=== PATIENT | male | born 1950 | race Caucasian/White ===

== ENCOUNTER 2021-12-09 17:03 | Outpatient (REF) | payer MEDICARE, SELFPAY ==
--- NOTE | ~2021-12-09 | XR_ITS ---
EXAMINATION: XR CHEST CLINICAL INFORMATION: Preop evaluation COMPARISON: None TECHNIQUE: 2 views of the chest were obtained. FINDINGS: The lungs are hyperinflated but clear of acute process. Heart size and pulmonary vascularity is normal. No gross bony or the body seen. XR/XR chest 2V IMPRESSION: Unremarkable chest examination.
[2021-12-09 17:15] LABS: MANUAL DIFF FLAG NO
[2021-12-09 17:46] LABS: Basophils Percent Auto 0.5 % (0-2); Eosinophils Absolute Auto 0.1 X10*3/uL (0.0-0.4); Eosinophils Percent Auto 1.5 % (0-4); Hematocrit 40.9 % (42.0-52.0); Hemoglobin 13.7 g/dl (14.0-18.0); Imm Gran Abs Auto 0.01 X10*3/uL (0.00-0.03); Imm Gran Pct Auto 0.2 % (0.0-0.4); Lymphocytes Absolute Auto 1.5 X10*3/uL (1.2-4.9); Lymphocytes Percent Auto 25.3 % (20-40); Mean Corpuscular HGB Conc 33.5 g/dl (31.0-36.0); Mean Corpuscular Hemoglobin 30.3 pg (27.0-33.0); Mean Corpuscular Volume 90.5 fL (80.0-98.0); Mean Platelet Volume 9.2 fL (9.4-12.4); Monocytes Absolute Auto 0.6 X10*3/uL (0.1-1.2); Monocytes Percent Auto 10.7 % (2-11); Neutrophils Absolute Auto 3.7 x10*3/uL (2.0-8.3); Neutrophils Percent Auto 61.8 % (45-73); Platelet Count 263 X10*3/uL (160-400); Red Blood Count 4.52 X10*6/uL (4.60-5.80); White Blood Count 5.9 X10*3/uL (4.8-10.8)
== END 2021-12-09 17:04 | disposition home or self-care (01) ==
LOC: HO.XRAY 17:03
PROVIDERS: PCP Internal Medicine Medical Oncology; Visit Provider Internal Medicine Medical Oncology
DX: Z01.818 Encounter for other preprocedural examination (principal)
CPT/HCPCS: 36415; 71046; 85025

== ENCOUNTER 2025-06-26 13:16 | Outpatient (REF) | payer MEDICARE, SELFPAY ==
--- OUTSIDE RECORDS SUMMARY | 2024-08-04 06:00 | XMS_ITS ---
Author Organization Demar Person III, MD Address [address] [place] [address] Care Team Providers Care Teachers' Assistant Name Role Phone Dr. Demar Person III Primary Care Provider Allergies Allergen (clinical drug ingredient) Drug/Non Drug Allergy documented on EMR Reaction Allergy Type Onset Date Status No Known Drug Allergy Unknown Drug Allergy Active REASON FOR VISIT Ozempiic weight loss plan rreview, Benign prostaticc hypertrophy, Obesity, . Diabettes, Oral leukoplakia Medications Medication SIG (Take, Route, Frequency, Duration) Notes Start Date End Date Status Niacin 500 MG 1 tablet with food Orally Twice a day Active CoQ-10 Active Glucosamine 500 MG 2 capsule with a meal Orally once a day Active Ozempic (1 MG/DOSE) 4 MG/3ML as directed Subcutaneous weekly for 28 days 08/04/2024 07/06/2025 Active Lisinopril 10 MG 1 tablet Orally Once a day 2024 Active metFORMIN HCl 500 MG TAKE 2 TABLET BY MOUTH TWICE A DAY WITH MEALS Active Vitamin D 1000 UNIT 1 tablet Orally Once a day Active Losartan Potassium 50 MG TAKE 2 TABLETS BY MOUTH EVERY DAY Active Simvastatin 10 MG TAKE 1 TABLET BY MOUTH EVERY DAY Active glipiZIDE ER 10 MG TAKE 1 TABLET BY MOUTH EVERY DAY WITH BREAKFAST Active Ozempic (0.25 or 0.5 MG/DOSE) 2 MG/3ML 0.5 mg Subcutaneous weekly this increases dose from .25 to .5 mg 2024 Active Ozempic (0.25 or 0.5 MG/DOSE) 2 MG/3ML 0.25 mg as directed Subcutaneous weekly 05/10/2024 Active Ozempic (0.25 or 0.5 MG/DOSE) 2 MG/3ML as directed Subcutaneous 05/10/2024 Active Social History Tobacco Use: Social History Observation Description Date Details (start date - stop date) Former Smoker NA - NA Sex Assigned At : Social History Observation Description Sex Assigned At Male Tobacco Use/Smoking Question Answer Notes Patient is a former smoker How long has it been since you last smoked? > 10 years Additional Findings: Tobacco Non-User Ex-cigaret te smoker Vital Signs Temperature 97.0 degrees Fahrenheit 08/04/20 24 Blood pressure systolic 140 mm Hg 08/04/20 24 Blood pressure diastolic 80 mm Hg 024 Heart Rate 76 /min 08/04/2024 Height 71 in 08/04/2024 Weight 229 lbs 08/04/2024 BMI 31.94 kg/m2 08/04/2024 Encounters Encounter Location Date Provider Diagnosis Demar Person III, MD [address] [place] [address] [place] [address] 08/04/2024 Demar Person Obesity (BMI 30.0-34 .9) E66.9 ; Type 2 diabetes mellitus without complication, unspecified whether longterm insulin use E11.9 ; Benign prostatic hyperplasia, unspecified whether lower urinary tract symptoms present N40.0 ; Mixed hyperlipidemia E78.2 ; 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 I have increased the dose of Ozempic. We have reviewed his weight loss strategy. 08/04/2024 Type 2 diabetes mellitus without complication, unspecified whether long distance operator insulin use (ICD-10 - E11.9) He reports his glucose levels are under 1:30. His fasting glucose was 128. I have ordered a hemoglobin A1c to be done for his next visit with a microalbumin. 08/04/2024 Benign prostatic hyperplasia, unspecified whether lower urinary tract symptoms present (ICD-10 - N40.0) He rises from sleep once or twice a night to urinate depending upon fluid intake. We discussed lifestyle modification as a way to reduce nocturia. 08/04/2024 Mixed hyperlipidemia (ICD-10 - E78.2) His lipids are stable and in their target range. No change in his regimen was necessary today. 08/04/2024 Leukoplakia of tongu e (ICD-10 - K13.21) He sees a dentist regularly. His oral examination was benign today.No leukoplakia was visualized. 08/04/2024 Former smoker (ICD-1 0 - Z87.891) He has a plan to prevent relapse in times of stress and illness. Plan Of Treatment Medication Medication Name Sig Start Date Stop Date Notes Niacin 500 MG 1 tablet with food Orally Twice a day CoQ-10 Glucosamine 500 MG 2 capsule with a lizette l Orally once a day Ozempic (1 MG/DOSE) 4 MG/3ML as directed Subcutaneous weekly for 28 days 08/04/2024 07/06/2025 Lisinopril 10 MG 1 tablet Orally Once a day 2024 metFORMIN HCl 500 MG TAKE 2 TABLET BY MO UTH TWICE A DAY WITH MEALS Vitamin D 1000 UNIT 1 tablet Orally Once a day Losartan Potassium 50 MG TAKE 2 TABLETS BY MOUTH EVERY DAY Simvastatin 10 MG TAKE 1 TABLET BY JONA TH EVERY DAY glipiZIDE ER 10 MG TAKE 1 TABLET BY JONA TH EVERY DAY WITH BREAKFAST Ozempic (0.25 or 0.5 MG/DOSE) 2 MG/3ML 0.5 mg Subcutaneous weekly 2024 this increases dose from .25 to .5 mg Ozempic (0.25 or 0.5 MG/DOSE) 2 MG/3ML 0.25 mg as directed Subcutaneous weekly 05/10/2024 Ozempic (0.25 or 0.5 MG/DOSE) 2 MG/3ML as directed Subcutaneous 05/10/2024 Next Appt Details Follow Up: 4 Weeks, In 3 or 4 weeks, Reason: OV, To check blood pressure and weight Provider Name:Demar Person , 07/04/2025 11:00:00 AM, [address] [place] [address] [place], [place], [phone], Provider Name:Demar Person , 10/08/2025 11:00:00 AM, [address] [place] [address] [place], [address], Progress Notes * Sundeep WOODS: 2 (74 yo M)Acc No.[id number]:08/04/2024 Progress Notes Patient: Sundeep KNIGHT Provider: Chantelle Person MD :1950 A ge:74 Y S ex:Male Date:08/04/2024 Address:[address] [place], [place] [id number] Subjective: * Chief Complaints: * O zempiic weight loss plan rreviewBenign prostaticc hypertrophyObesity. DiabettesOral leukoplakia * HPI: C OVID-19 Screening: Questions H ave you had any new onset fever, chills, cough, congestion, sore throat, shortness of breath, muscle aches? N o * : The patient, a 74-year-old male, has been on Lisinopril for a month. He reported developing a cough, which he also noted is present in other family members. The patient has been on Ozempic for a few weeks, during which he initially lost 5-6 lbs, but then regained the weight. The patient also mentioned that he has been less active due to colder weather. The patient's blood pressure was found to be slightly higher than normal, but the doctor attributed this to the patient's recent weight gain and the stress of visiting the doctor's office. He has gained 2 pounds. I have increased the Ozempic and given him a follow-up visit in one month. He is tolerating drug well without side effectss. * ROS: G eneral/Constitutional: pain o nly normal aches and pains. C hills d enies.?Fatigue a dmits. F ever d enies. A llergy/Immunology: Admits C ough. E NT: Decreased hearing m ild. R espiratory: Cough d enies. C ardiovascular: Chest pain with exertion d enies. D yspnea on exertion?denies. S hortness of breath d enies. G astrointestinal: Constipation o ccasional. D ecreased appetite d enies. D iarrhea d enies. H eartburn d enies. N ausea d enies. R ectal bleeding d enies. V omiting d enies. H ematology: bruising d enies. p etechiae d enies. S wollen glands n one have been noted. G enitourinary: Frequent urination o nce a night. M usculoskeletal: Muscle aches d enies. P ainful joints d enies. S ciatica d enies. W eakness d enies. S kin: Itching d enies. R ravin d enies. S kin lesion(s)?denies. N eurologic: Difficulty speaking d enies. D izziness d enies.?Headache d enies. L ow back pain d enies. P sychiatric: Depressed mood d enies. * Medical History: * Surgical History: c ryptorchidism surgery, age [age] right lateral tongue 1 cm Leukoplakia 01/2022No history * Hospitalization/Major Diagno stic Procedure: N o history * Family History: F ather: 100 yrs, Hypertension, diagnosed with HTN. M other: 70 yrs, Diabetes mellitus, hypertension, chronic renal dialysis, diagnosed with DM, HTN. S iblings: alive. 2 sister(s) - healthy. 2 son(s) , 2 daughter(s) - healthy. . His 2 sisters are healthy and well. He has 2 sons and 2 daughters, two of whom are stepchildren. He is not aware of any inherited cancer family syndrome. He is not aware of any family history of mental illness. He is not aware of any family history of substance abuse or addiction. The patient himself has no history of mental illness or substance abuse. * Social History: T obacco Use: T obacco Use/Smoking P atient is a f ormer smoker H ow long has it been since you last smoked??> 10 years A dditional Findings: Tobacco Non-User E x-cigarette smoker Cathleen oropeza was born in [place], [place]. 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 He went to school at the [employer] of pharmacy. He is . * Medications: T akingSimvastatin 10 MG Tablet TAKE 1 TABLET BY MOUTH EVERY DAY glipiZIDE ER 10 MG Tablet Extended Release 24 Hour TAKE 1 TABLET BY MOUTH EVERY DAY WITH BREAKFAST Losartan Potassium 50 MG Tablet TAKE 2 TABLETS BY MOUTH EVERY DAY metFORMIN HCl 500 MG Tablet TAKE 2 TABLET BY MOUTH TWICE A DAY WITH MEALS Vitamin D 1000 UNIT Tablet 1 tablet Orally Once a day CoQ-10 Glucosamine 500 MG Capsule 2 capsule with a meal Orally once a day Niacin 500 MG Tablet 1 tablet with food Orally Twice a day Ozempic (0.25 or 0.5 MG/DOSE) 2 MG/3ML Solution Pen-injector as directed Subcutaneous Ozempic (0.25 or 0.5 MG/DOSE) 2 MG/3ML Solution Pen-injector 0.25 mg as directed Subcutaneous weekly Ozempic (0.25 or 0.5 MG/DOSE) 2 MG/3ML Solution Pen-injector 0.5 mg Subcutaneous weekly , stop date 06/06/2025, Notes to Pharmacist: this increases dose from .25 to .5 mgLisinopril 10 MG Tablet 1 tablet Orally Once a day Medication List reviewed and reconciled with the patientTaking Simvastatin 10 MG Tablet TAKE 1 TABLET BY MOUTH EVERY DAY Taking glipiZIDE ER 10 MG Tablet Extended Release 24 Hour TAKE 1 TABLET BY MOUTH EVERY DAY WITH BREAKFAST Taking Losartan Potassium 50 MG Tablet TAKE 2 TABLETS BY MOUTH EVERY DAY Taking metFORMIN HCl 500 MG Tablet TAKE 2 TABLET BY MOUTH TWICE A DAY WITH MEALS Taking Vitamin D 1000 UNIT Tablet 1 tablet Orally Once a day Taking CoQ-10 Taking Glucosamine 500 MG Capsule 2 capsule with a meal Orally once a day Taking Niacin 500 MG Tablet 1 tablet with food Orally Twice a day Taking Ozempic (0.25 or 0.5 MG/DOSE) 2 MG/3ML Solution Pen-injector as directed Subcutaneous Taking Ozempic (0.25 or 0.5 MG/DOSE) 2 MG/3ML Solution Pen-injector 0.25 mg as directed Subcutaneous weekly Taking Ozempic (0.25 or 0.5 MG/DOSE) 2 MG/3ML Solution Pen-injector 0.5 mg Subcutaneous weekly , stop date 06/06/2025, Notes to Pharmacist: this increases dose from .25 to .5 mgTaking Lisinopril 10 MG Tablet 1 tablet Orally Once a day Medication List reviewed and reconciled with the patient * Allergies: N o Known Drug Allergyno[Allergies Verified] Objective: * Vitals: H t: 71, Wt:229, BMI:31.94, BP:140/80, HR:76, Temp:97.0, Wt-k.87. * Examination: G eneral Examination: GENERAL APPEARANCE: p alexia, well nourished, well developed, in no acute distress, calm and relaxed, obese, man. HEAD: a traumatic, normocephalic. EYES: e petey, perrla, anicteric, conjugate. EARS: n ormal. NOSE: s eptum intact. ORAL CAVITY: n ormal, unremarkable, no leukoplakia. NECK/THYROID: n o jugular venous distention, no carotid bruit, thyroid normal. LYMPH NODES: n o enlarged lymph nodes,spleen normal. SKIN: n o suspicious lesions, anicteric. HEART: n o clicks, gallops, murmurs, or rubs, regular rhythm, S1, S2 normal, no s3, or vascular bruits. LUNGS: c lear to auscultation . BREASTS: no masses palpable bilaterally. ABDOMEN: b owel sounds normal, no ascites, no organomegaly, no mass, centripital obesity. RECTAL EXAM: n ot examined. MUSCULOSKELETAL: e xtremities unremarkable, no clubbing, cyanosis or edema. PERIPHERAL PULSES: n ormal. NEUROLOGIC: a lert and oriented, cranial nerves 2-12 grossly intact, deep tendon reflexes 2+ symmetrical, motor strength normal upper and lower extremities, sensory exam intact. PSYCH: a lert, oriented. Assessment: * Assessment: 1. T ype 2 diabetes mellitus without complication, unspecified whether long distance operator insulin use - E11.9 (Primary) N otes :He reports his glucose levels are under 1:30. His fasting glucose was 128. I have ordered a hemoglobin A1c to be done for his next visit with a microalbumin. 2 . O besity (BMI 30.0-34.9) - E66.9 N otes :After an initial weight loss he has gained weight. I have increased the dose of Ozempic. We have reviewed his weight loss strategy. 3 . B enign prostatic hyperplasia, unspecified whether lower urinary tract symptoms present - N40.0 N otes :He rises from sleep once or twice a night to urinate depending upon fluid intake. We discussed lifestyle modification as a way to reduce nocturia. 4 . M ixed hyperlipidemia - E78.2 N otes :His lipids are stable and in their target range. No change in his regimen was necessary today. 5 . L eukoplakia of tongue - K13.21 N otes :He sees a dentist regularly. His oral examination was benign today.No leukoplakia was visualized. 6 . F ormer smoker - Z87.891 N otes :He has a plan to prevent relapse in times of stress and illness. Plan: * Treatment: 2. O thers Continue Simvastatin Tablet, 10 MG, TAKE 1 TABLET BY MOUTH EVERY DAY; C ontinue glipiZIDE ER Tablet Extended Release 24 Hour, 10 MG, TAKE 1 TABLET BY MOUTH EVERY DAY WITH BREAKFAST; C ontinue Losartan Potassium Tablet, 50 MG, TAKE 2 TABLETS BY MOUTH EVERY DAY; C ontinue metFORMIN HCl Tablet, 500 MG, TAKE 2 TABLET BY MOUTH TWICE A DAY WITH MEALS. * Procedure Codes: * Preventive Medicine: Counseling: C are goal follow-up plan: Counseling for abnormal BMI given Y es Above Normal BMI Follow-up D ietary management education, guidance, and counseling, Dietary needs education, Exercise promotion: strength training, Exercise promotion: stretching, Feeding regime, Giving encouragement to exercise, Lifestyle education regarding diet, Nutrition / feeding management, Nutrition therapy, Prescribed activity/exercise education, Prescribed diet education, Prescribed dietary intake, Special diet education, Weight monitoring , Intervention, Order not done: Medical or Other reason not done S moking/Tobacco Use Patient counseled on the dangers of tobacco use and urged to quit. 1 10/05/2023 DM Care Plan: P atient Lifestyle Goals P atient wants to be able to manage diabetes without too much effort. T reatment Goals H bA1C < 7.0, Blood Sugars less than < 115. B arriers n o barriers. S elf-Managment Goals W ork on weight loss, with a goal of losing 1 lb per week. * Follow Up: 4 Weeks, In 3 or 4 weeks (Reason: OV, To check blood pressure and weight) * Images: * Sign off status: Completed true * Provider: Chantelle Person MD Date: 10/05/2023 Generated for Ene kingston/Joel/Mesfinitting on: 08/26/2024 02:56 PM EST History and Physical Notes * HPI (History of Present Illness) Category Sub-Category Detail Notes COVID-19 Screening Questions Have you had any new onset fever, chills, cough, congestion, sore throat, shortness of breath, muscle aches?: No Examination Category Sub-Category Detail Notes General Examination GENERAL APPEARANCE: pleasant , well nourished, well developed, in no acute distress, calm and relaxed, obese, man HEAD: atraumatic, normocep halic EYES: eomi, perrla, anicte nikki, conjugate EARS: normal NOSE: septum intact NECK/THYROID: no jugular venous di stention, no carotid bruit, thyroid normal HEART: no clicks, gallops, murmurs, or rubs, regular rhythm, S1, S2 normal, no s3, or vascular bruits LUNGS: clear to auscultatio n ABDOMEN: bowel sounds normal, no ascites, no organomegaly, no mass, centripital obesity NEUROLOGIC: alert and oriented, cranial nerves 2-12 grossly intact, deep tendon reflexes 2+ symmetrical, motor strength normal upper and lower extremities, sensory exam intact SKIN: no suspicious lesion s, anicteric PERIPHERAL PULSES: normal BREASTS: no masses palpable b ilaterally MUSCULOSKELETAL: extremities unremark able, no clubbing, cyanosis or edema LYMPH NODES: no enlarged lymph no sherri,spleen normal RECTAL EXAM: not examined PSYCH: alert, oriented ORAL CAVITY: normal, unremarkable , no leukoplakia
--- OUTSIDE RECORDS SUMMARY | 2024-08-21 09:18 | XMS_ITS ---
Author Organization Demar Person III, MD Address [address] [place] [address] [place] [address] Care Team Providers Care Cyanide Pot Tender Name Role Phone Dr. Demar Person III Primary Care Provider REASON FOR VISIT ? Rx Side Effect Social History Sex Assigned At : Social History Observation Description Sex Assigned At Male Encounters Encounter Location Date Provider Diagnosis Demar Person III, MD [address] [place] [address] [place] [address] 08/21/2024 Demar Person Plan Of Treatment Next Appt Details Provider Name:Demar Person , 07/04/2025 11:00:00 AM, [address] [place] [address] [place], [address], Provider Name:Demar Person , 10/08/2025 11:00:00 AM, [address] [place] [address] [place], [address], Progress Notes * Sundeep WOODSDOB: (74 yo M)Acc No.[id number]:08/21/2024 Patient: Maxine LIONSundeep :1950 A ge:74 Y S ex:Male Address:[address] [place] [address], [phone] * true * Date: Generated for Printi ng/Faxing/eTransmitting on: 08/26/2024 02:57 PM EST
--- OUTSIDE RECORDS SUMMARY | 2024-09-07 06:00 | XMS_ITS ---
Author Organization Demar Person III, MD Address [address] [place] [address] Care Team Providers Care Court Bailiff Or Sheriff Name Role Phone Dr. Demar Person III Primary Care Provider Allergies Allergen (clinical drug ingredient) Drug/Non Drug Allergy documented on EMR Reaction Allergy Type Onset Date Status No Known Drug Allergy Unknown Drug Allergy Active Results Component Value Reference Range Notes PROFILE, FASTING (COMPREHENS LANI METABOLIC) Reviewed date:09/22/2024 10:09:45 AM Interpretation: Performing Lab: Notes/Report: PSA, TOTAL Reviewed date:09/22/2024 10:09:33 AM Interpretation: Performing Lab: Notes/Report: CBC WITH AUTO DIFF Reviewed date:09/22/2024 10:09:24 AM Interpretation: Performing Lab: Notes/Report: Lipid Panel Reviewed date:09/22/2024 10:09:12 AM Interpretation: Performing Lab: Notes/Report: Vitamin D 25-OH Total Reviewed date:09/22/2024 10:09:02 AM Interpretation: Performing Lab: Notes/Report: Microalbumin, Random Reviewed date:09/22/2024 10:08:52 AM Interpretation: Performing Lab: Notes/Report: Hemoglobin A1c Reviewed date:09/22/2024 10:08:41 AM Interpretation: Performing Lab: Notes/Report: REASON FOR VISIT Benign prostatic hypertrophy, Hyperlipidemia, Obesity, Diabetes, History of leukoplakic Medications Medication SIG (Take, Route, Frequency, Duration) Notes Start Date End Date Status Niacin 500 MG 1 tablet with food O rally Twice a day Active Glucosamine 500 MG 2 capsule with a lizette l Orally once a day Active CoQ-10 Active Ozempic (1 MG/DOSE) 4 MG/3ML as directed Subcutaneous weekly 08/04/2024 Active Losartan Potassium 100 MG 1 tablet Orally Once a day Active Vitamin D 1000 UNIT 1 tablet Orally Once a day Active Simvastatin 10 MG TAKE 1 TABLET BY JONA TH EVERY DAY Active metFORMIN HCl 500 MG TAKE 2 TABLET BY MO UTH TWICE A DAY WITH MEALS 90 Active glipiZIDE ER 10 MG TAKE 1 TABLET BY JONA TH EVERY DAY WITH BREAKFAST Active Social History Tobacco Use: Social History Observation Description Date Details (start date - stop date) Former Smoker NA - NA Sex Assigned At : Social History Observation Description Sex Assigned At Male Tobacco Use/Smoking Question Answer Notes Patient is a former smoker How long has it been since you last smoked? > 10 years Additional Findings: Tobacco Non-User Ex-cigaret te smoker Alcohol Screen Question Answer Notes Did you have a drink contain ing alcohol in the past year? Yes How often did you have a dri nk containing alcohol in the past year? Monthly or less (1 point) How many drinks did you have on a typical day when you were drinking in the past year? 3 or 4 drinks (1 point) How often did you have 6 or more drinks on one occasion in the past year? Never (0 point) Points 2 Interpretation Negative Vital Signs Temperature 97.7 degrees Fahrenheit 09/07/19 25 Blood pressure systolic 141 mm Hg 09/07/19 25 Blood pressure diastolic 87 mm Hg 025 Heart Rate 82 /min 09/07/2024 Height 71 in 09/07/2024 Weight 224 lbs 09/07/2024 BMI 31.24 kg/m2 09/07/2024 Encounters Encounter Location Date Provider Diagnosis Demar Person III, MD [address] [place] [address] [place] [address] 09/07/2024 Demar Person Obesity (BMI 30.0-34 .9) E66.9 ; Type 2 diabetes mellitus without complication, unspecified whether termite inspector insulin use E11.9 ; Benign prostatic hyperplasia, unspecified whether lower urinary tract symptoms present N40.0 ; Mixed hyperlipidemia E78.2 ; Vitamin D deficiency, unspecified E55.9 and Former smoker Z87.891 Assessments Encounter Date Diagnosis (ICD Code) Assessment Notes Treat ment Notes Treatment Clinical Notes 09/07/2024 Obesity (BMI 30.0-34.9) (ICD-10 - E66.9) On the current dose of Ozempic he has lost 5 pounds in the last month. This dose was continue without change for the next month. He feels generally healthy and well. 09/07/2024 Type 2 diabetes mellitus without complication, unspecified whether group home insulin use (ICD-10 - E11.9) His weight is elevated and his hemoglobin A1c is 8.5. He will continue on the increased dose of Ozempic an attempt to lose 1-2 pounds per week. The A1c will be repeated in 12 weeks. 09/07/2024 Benign prostatic hyperplasia, unspecified whether lower urinary tract symptoms present (ICD-10 - N40.0) He reports rising from sleep usually once a night sometimes twice depending upon fluid intake. We have discussed lifestyle modifications referred back to reduce this nocturia. 09/07/2024 Mixed hyperlipidemia (ICD-10 - E78.2) His currentt fasting lipid profile is not available. There was ordered to be done within the next few days. His total cholesterol in April 2024 was 134. No change in his regimen was made. 09/07/2024 Vitamin D deficiency , unspecified (ICD-10 - E55.9) He was continued on vitamin D supplements. 09/07/2024 Former smoker (ICD-1 0 - Z87.891) He has a plan to prevent relapse in times of stress and illness. Plan Of Treatment Medication Medication Name Sig Start Date Stop Date Notes Niacin 500 MG 1 tablet with food O rally Twice a day Glucosamine 500 MG 2 capsule with a lizette l Orally once a day CoQ-10 Ozempic (1 MG/DOSE) 4 MG/3ML as directed Subcutaneous weekly 08/04/2024 Losartan Potassium 100 MG 1 tablet Orally Once a day Vitamin D 1000 UNIT 1 tablet Orally Once a day Simvastatin 10 MG TAKE 1 TABLET BY JONA TH EVERY DAY metFORMIN HCl 500 MG TAKE 2 TABLET BY MO UTH TWICE A DAY WITH MEALS 90 glipiZIDE ER 10 MG TAKE 1 TABLET BY JONA TH EVERY DAY WITH BREAKFAST Next Appt Details Follow Up: As Scheduled, 1 m onth later, Reason: Annual Exam, To monitor the patient's weight loss progress and adjust the treatment plan if necessary. Provider Name:Demar Person , 07/04/2025 11:00:00 AM, [address] [place] [address] , [address], [place], [place], [id number], Provider Name:Demar Person , 10/08/2025 11:00:00 AM, [address] [place] [address] [address], [place], [phone], Progress Notes * Sundeep WOODS JDOB: [birth year] (74 yo M)Acc No.[id number]:09/07/2024 Progress Notes Patient: Sundeep KNIGHT Provider: Chantelle Person MD :1950 A ge:74 Y S ex:Male Date:09/07/2024 Address:[address] [place], [place] [id number] Subjective: * Chief Complaints: * B enign prostatic hypertrophyHyperlipidemiaObesityDiabetesHistory of leukoplakic * HPI: C OVID-19 Screening: Questions H ave you had any new onset fever, chills, cough, congestion, sore throat, shortness of breath, muscle aches? N o * : The patient, a 74-year-old male, has been on Ozempic for weight loss and diabetes management. He reported that he has been experiencing weight loss, particularly when the dosage of Ozempic is increased. He lost 5 lbs in the past month, which he attributes to the medication and increased activity during the winter. The patient also mentioned that his hunger levels have decreased, making it easier for him to control his calorie intake. He has been advised to continue with his current dosage and regimen, with the possibility of increasing the dosage if he reaches a weight loss plateau. He feels generally healthy and well and has had no side effects from Ozempic. He has lost 5 pounds in 4 weeks. The medicaation was continued at the current dose. He will be seen once a month. * ROS: G eneral/Constitutional: pain o nly normal aches and pains. C hills d enies.?Fatigue a dmits. F ever d enies. A dmits W eight loss. E NT: Decreased hearing d enies. R espiratory: Cough d enies. C ardiovascular: [...] dditional Findings: Tobacco Non-User E x-cigarette smoker D rugs/Alcohol: D rugs H ave you used drugs other than those for medical reasons in the past 12 months? N o Alcohol Screen D id you have a drink containing alcohol in the past year? Y es H ow often did you have a drink containing alcohol in the past year? M onthly or less (1 point) H ow many drinks did you have on a typical day when you were drinking in the past year? 3 or 4 drinks (1 point) H ow often did you have 6 or more drinks on one occasion in the past year? N ever (0 point) P oints 2 I nterpretation N egative Cathleen oropeza was born in [place], [place]. 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 He went to school at the [employer] of pharmacy. He is . The patient is active during the winter and has been making an effort to control his calorie intake. He has been advised to avoid recreational food and sugary drinks. * Medications: T akingSimvastatin 10 MG Tablet TAKE 1 TABLET BY MOUTH EVERY DAY Vitamin D 1000 UNIT Tablet 1 tablet Orally Once a day CoQ-10 Glucosamine 500 MG Capsule 2 capsule with a meal Orally once a day Niacin 500 MG Tablet 1 tablet with food Orally Twice a day Ozempic (1 MG/DOSE) 4 MG/3ML Solution Pen-injector as directed Subcutaneous weekly , stop date 07/06/2025metFORMIN HCl 500 MG Tablet TAKE 2 TABLET BY MOUTH TWICE A DAY WITH MEALS 90 glipiZIDE ER 10 MG Tablet Extended Release 24 Hour TAKE 1 TABLET BY MOUTH EVERY DAY WITH BREAKFAST Losartan Potassium 100 MG Tablet 1 tablet Orally Once a day Taking Simvastatin 10 MG Tablet TAKE 1 TABLET BY MOUTH EVERY DAY Taking Vitamin D 1000 UNIT Tablet 1 tablet Orally Once a day Taking CoQ-10 Taking Glucosamine 500 MG Capsule 2 capsule with a meal Orally once a day Taking Niacin 500 MG Tablet 1 tablet with food Orally Twice a day Taking Ozempic (1 MG/DOSE) 4 MG/3ML Solution Pen-injector as directed Subcutaneous weekly , stop date 07/06/2025Taking metFORMIN HCl 500 MG Tablet TAKE 2 TABLET BY MOUTH TWICE A DAY WITH MEALS 90 Taking glipiZIDE ER 10 MG Tablet Extended Release 24 Hour TAKE 1 TABLET BY MOUTH EVERY DAY WITH BREAKFAST Taking Losartan Potassium 100 MG Tablet 1 tablet Orally Once a day DiscontinuedLisinopril 10 MG Tablet 1 tablet Orally Once a day Ozempic (0.25 or 0.5 MG/DOSE) 2 MG/3ML Solution Pen-injector as directed Subcutaneous Ozempic (0.25 or 0.5 MG/DOSE) 2 MG/3ML Solution Pen-injector 0.25 mg as directed Subcutaneous weekly Ozempic (0.25 or 0.5 MG/DOSE) 2 MG/3ML Solution Pen-injector 0.5 mg Subcutaneous weekly , Notes to Pharmacist: this increases dose from .25 to .5 mgMedication List reviewed and reconciled with the patientDiscontinued Lisinopril 10 MG Tablet 1 tablet Orally Once a day Discontinued Ozempic (0.25 or 0.5 MG/DOSE) 2 MG/3ML Solution Pen-injector as directed Subcutaneous Discontinued Ozempic (0.25 or 0.5 MG/DOSE) 2 MG/3ML Solution Pen-injector 0.25 mg as directed Subcutaneous weekly Discontinued Ozempic (0.25 or 0.5 MG/DOSE) 2 MG/3ML Solution Pen-injector 0.5 mg Subcutaneous weekly , Notes to Pharmacist: this increases dose from .25 to .5 mgMedication List reviewed and reconciled with the patient * Allergies: N o Known Drug Allergyno[Allergies Verified] Objective: * Vitals: H t: 71, Wt:224, BMI:31.24, BP:141/87, HR:82, Temp:97.7, Wt-k.6. * Examination: G eneral Examination: GENERAL APPEARANCE: p leasant, well nourished, well developed, in no acute distress, calm and relaxed, obese, man. HEAD: a traumatic, normocephalic. EYES: e petey, perrla, anicteric, conjugate. EARS: n ormal. NOSE: s eptum intact. ORAL CAVITY: n ormal, unremarkable. NECK/THYROID: n o jugular venous distention, no carotid bruit, thyroid normal. LYMPH NODES: n o enlarged lymph nodes,spleen normal. SKIN: n o suspicious lesions, anicteric. HEART: n o clicks, gallops, murmurs, or rubs, regular rhythm, S1, S2 normal, no s3, or vascular bruits. LUNGS: , diminished breath sounds throughout, no wheezes, rales, rhonchi, good air movement. BREASTS: no masses palpable bilaterally. ABDOMEN: b [...] sensory exam intact. PSYCH: a lert, oriented. - : L ungs:Normal sound, Blood Pressure: 138. Assessment: * Assessment: 1. T ype 2 diabetes mellitus without complication, unspecified whether group home insulin use - E11.9 (Primary) N otes :His weight is elevated and his hemoglobin A1c is 8.5. He will continue on the increased dose of Ozempic an attempt to lose 1-2 pounds per week. The A1c will be repeated in 12 weeks. 2 . O carmella (BMI 30.0-34.9) - E66.9 N otes :On the current dose of Ozempic he has lost 5 pounds in the last month. This dose was continue without change for the next month. He feels generally healthy and well. 3 . B enign prostatic hyperplasia, unspecified whether lower urinary tract symptoms present - N40.0 N otes :He reports rising from sleep usually once a night sometimes twice depending upon fluid intake. We have discussed lifestyle modifications referred back to reduce this nocturia. 4 . M ixed hyperlipidemia - E78.2 N otes :His currentt fasting lipid profile is not available. There was ordered to be done within the next few days. His total cholesterol in April 2024 was 134. No change in his regimen was made. 5 . V itamin D deficiency, unspecified - E55.9 N otes :He was continued on vitamin D supplements. 6 . F ormer smoker - Z87.891 N otes :He has a plan to prevent relapse in times of stress and illness. Plan: * Treatment: 2. O carmella (BMI 30.0-34.9) Continue Vitamin D Tablet, 1000 UNIT, 1 tablet, Orally, Once a day; C ontinue CoQ-10; C ontinue Glucosamine Capsule, 500 MG, 2 capsule with a meal, Orally, once a day; C ontinue Niacin Tablet, 500 MG, 1 tablet with food, Orally, Twice a day; C ontinue Ozempic (1 MG/DOSE) Solution Pen-injector, 4 MG/3ML, as directed, Subcutaneous, weekly. L AB: PROFILE, FASTING (COMPREHENSIVE METABOLIC) L AB: PSA, TOTAL L AB: CBC WITH AUTO DIFF L AB: Lipid Panel L AB: Vitamin D 25-OH Total L AB: Microalbumin, Random L AB: Hemoglobin A1c 3. B enign prostatic hyperplasia, unspecified whether lower urinary tract symptoms present L AB: PROFILE, FASTING (COMPREHENSIVE METABOLIC) L AB: PSA, TOTAL L AB: CBC WITH AUTO DIFF L AB: Lipid Panel L AB: Vitamin D 25-OH Total L AB: Microalbumin, Random L AB: Hemoglobin A1c 4. M ixed hyperlipidemia L AB: PROFILE, FASTING (COMPREHENSIVE METABOLIC) L AB: PSA, TOTAL L AB: CBC WITH AUTO DIFF L AB: Lipid Panel L AB: Vitamin D 25-OH Total L AB: Microalbumin, Random L AB: Hemoglobin A1c 5. V itamin D deficiency, unspecified L AB: PROFILE, FASTING (COMPREHENSIVE METABOLIC) L AB: PSA, TOTAL L AB: CBC WITH AUTO DIFF L AB: Lipid Panel L AB: Vitamin D 25-OH Total L AB: Microalbumin, Random L AB: Hemoglobin A1c 6. O thers Continue Losartan Potassium Tablet, 100 MG, 1 tablet, Orally, Once a day; C ontinue glipiZIDE ER Tablet Extended Release 24 Hour, 10 MG, TAKE 1 TABLET BY MOUTH EVERY DAY WITH BREAKFAST; C ontinue metFORMIN HCl Tablet, 500 MG, TAKE 2 TABLET BY MOUTH TWICE A DAY WITH MEALS 90; C ontinue Simvastatin Tablet, 10 MG, TAKE 1 TABLET BY MOUTH EVERY DAY. * Procedure Codes: * Preventive Medicine: Counseling: [...] of tobacco use and urged to quit. 0 09/07/2024 DM Care Plan: P atient Lifestyle Goals P atient wants to be able to manage diabetes without too much effort. T reatment Goals B lood Sugars less than < 115, HbA1C < 7.0. B arriers n o barriers. S elf-Managment Goals W ork on weight loss, with a goal of losing 1 lb per week. * Follow Up: A s Scheduled, 1 month later (Reason: Annual Exam, To monitor the patient's weight loss progress and adjust the treatment plan if necessary.) * Images: * Sign off status: Completed true * Provider: Chantelle Person MD Date: 0 09/07/2024 Generated for Ene kingston/Joel/Mesfinitting on: 08/26/2024 02:57 PM EST History and Physical Notes * [...] normal, no s3, or vascular bruits LUNGS: , diminished breath sounds throughout, no wheezes, rales, rhonchi, good air movement ABDOMEN: bowel sounds normal, no ascites, no [...]
--- OUTSIDE RECORDS SUMMARY | 2024-09-25 06:00 | XMS_ITS ---
Author Organization Demar Person III, MD Address [address] [address] Care Team Providers Care Can Piler Name Role Phone Dr. Demar Person III Primary Care Provider Allergies Allergen (clinical drug ingredient) Drug/Non Drug Allergy documented on EMR Reaction Allergy Type Onset Date Status No Known Drug Allergy Unknown Drug Allergy Active Results Component Value Reference Range Notes URINE DIP STICK Reviewed date:09/25/2024 11:13:53 AM Interpretation: Performing Lab: Notes/Report: SG 1.020 1.005 - 1.025 pH 5.0 5.0 - 9.0 JUAN Negative Negative - NIT Negative Negative - PRO 100 Negative - Trace GLU Negative Negative - KET 5 Negative - UBG 0.2 0.1 - 1.8 TARYN Negative 0.2 - 1.3 BLD + - Negative - REASON FOR VISIT Annual Exam Medications Medication SIG (Take, Route, Frequency, Duration) Notes Start Date End Date Status Vitamin D 1000 UNIT 1 tablet Orally Once a day Active Glucosamine 500 MG 2 capsule with a lizette l Orally once a day Active CoQ-10 Active Niacin 500 MG 1 tablet with food O rally Twice a day Active Ozempic (1 MG/DOSE) 4 MG/3ML as directed Subcutaneous weekly 08/04/2024 Active metFORMIN HCl 500 MG TAKE 2 TABLET BY MO UTH TWICE A DAY WITH MEALS 90 Active amLODIPine Besylate 2.5 MG 1 tablet Orally Once a day for 30 days 09/25/2024 Active Simvastatin 10 MG TAKE 1 TABLET BY JONA TH EVERY DAY Active glipiZIDE ER 10 MG TAKE 1 TABLET BY JONA TH EVERY DAY WITH BREAKFAST Active Losartan Potassium 100 MG 1 tablet Orall y Once a day Active Ozempic (2 MG/DOSE) 8 MG/3ML 2 mg Subcutaneous weekly for 28 days 09/25/2024 08/27/2025 Active Social History Tobacco Use: Social History Observation Description Date Details (start date - stop date) Former Smoker NA - NA Sex Assigned At : Social History Observation Description Sex Assigned At Male Tobacco Control (Standard) Question Answer Notes Tobacco use: Former smoker How long has it been since you last smoked? Grea ter than 10 years Additional Findings: Tobacco non-user Ex-cigaret te smoker AUDIT-C (Standard) Question Answer Notes Did you have a drink containing alcohol in the p ast year? No Points 0 Interpretation Negative Vital Signs Temperature 97.6 degrees Fahrenheit 09/25/19 25 Blood pressure systolic 137 mm Hg 09/25/19 25 Blood pressure diastolic 78 mm Hg 025 Heart Rate 73 /min 09/25/2024 Height 71 in 09/25/2024 Weight 224 lbs 09/25/2024 BMI 31.24 kg/m2 09/25/2024 Encounters Encounter Location Date Provider Diagnosis Demar Person III, MD [address] [place] [address] [place] [address] 09/25/2024 Demar Person Obesity (BMI 30.0-34 .9) E66.9 ; Type 2 diabetes mellitus without complication, unspecified whether termite exterminator helper insulin use E11.9 ; Adenomatous polyp D36.9 ; Benign prostatic hyperplasia, unspecified whether lower urinary tract symptoms present N40.0 ; Mixed hyperlipidemia E78.2 ; 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 This dose was continue without change for the next month. He feels generally healthy and well. 09/25/2024 Type 2 diabetes mellitus without complication, unspecified whether halfway insulin use (ICD-10 - E11.9) His weight is elevated and his hemoglobin A1c is 8.5. He will continue on the increased dose of Ozempic an attempt to lose 1-2 pounds per week. The A1c will be repeated in 12 weeks. 09/25/2024 Adenomatous polyp (ICD-10 - D36.9) He will have a colonoscopy every 5 years. 09/25/2024 Benign prostatic hyperplasia, unspecified whether lower urinary tract symptoms present (ICD-10 - N40.0) He reports rising from sleep usually once a night sometimes twice depending upon fluid intake. We have discussed lifestyle modifications referred back to reduce this nocturia. 09/25/2024 Mixed hyperlipidemia (ICD-10 - E78.2) His currentt fasting lipid profile is not available. There was ordered to be done within the next few days. His total cholesterol in April 2024 was 134. No change in his regimen was made. 09/25/2024 Leukoplakia of tongu e (ICD-10 - K13.21) He sees a dentist regularly. His oral examination was benign today.No leukoplakia was visualized. 09/25/2024 Chest pain, unspecified type (ICD-10 - R07.9) He has had no further chest pain since his last visit. 09/25/2024 Former smoker (ICD-1 0 - Z87.891) He has a plan to prevent relapse in times of stress and illness. Plan Of Treatment Medication Medication Name Sig Start Date Stop Date Notes Vitamin D 1000 UNIT 1 tablet Orally Once a day Glucosamine 500 MG 2 capsule with a lizette l Orally once a day CoQ-10 Niacin 500 MG 1 tablet with food O rally Twice a day Ozempic (1 MG/DOSE) 4 MG/3ML as directed Subcutaneous weekly 08/04/2024 metFORMIN HCl 500 MG TAKE 2 TABLET BY MO UTH TWICE A DAY WITH MEALS 90 amLODIPine Besylate 2.5 MG 1 tablet Oral ly Once a day for 30 days 09/25/2024 Simvastatin 10 MG TAKE 1 TABLET BY JONA TH EVERY DAY glipiZIDE ER 10 MG TAKE 1 TABLET BY JONA TH EVERY DAY WITH BREAKFAST Losartan Potassium 100 MG 1 tablet Orally Once a day Ozempic (2 MG/DOSE) 8 MG/3ML 2 mg Subcut aneous weekly for 28 days 09/25/2024 08/27/2025 Next Appt Details Follow Up: 4 Months, Reason: ov Provider Name:Demar Person , 07/04/2025 11:00:00 AM, [address] [place] [address] [address], [address], [place], [id number], Provider Name:Demar Person , 10/08/2025 11:00:00 AM, [address] [facility] [place], [place], [address], Progress Notes * NISSA Sundeep JDOB: [birth year] (74 yo M)Acc No.[id number]:09/25/2024 Progress Notes Patient: Sundeep KNIGHT Provider: Chantelle Person MD :[id number] A ge:74 Y S ex:Male Date:09/25/2024 Address:[address] [place] [id number] Subjective: * Chief Complaints: * A nnual Exam * HPI: D epression Screening: PHQ-9 L ittle interest or pleasure in doing things?Not at all F eeling down, depressed, or hopeless N ot at all T rouble falling or staying asleep, or sleeping too much N ot at all F eeling tired or having little energy N ot at all P oor appetite or overeating N ot at all F eeling bad about yourself or that you are a failure, or have let yourself or your family down N ot at all T rouble concentrating on things, such as reading the newspaper or watching television N ot at all M oving or speaking so slowly that other people could have noticed; or the opposite, being so fidgety or restless that you have been moving around a lot more than usual N ot at all T houghts that you would be better off or of hurting yourself in some way N ot at all T otal Score 0 C OVID-19 Screening: He returns to the office for his annual physical examination at the age of 74. Since his last visit he has been healthy and well. He has been rising from sleep once or twice a night to urinate, which is stable. Comprehensive blood work was available, which has been reviewed with him in detail.He weighs the same. His appetite is good. He denies any chest pain or dyspnea. He has been compliant with all of his medications. His fasting glucose levels have been under 150. He is not smoking.The blood work done September 20, 2024 showed glucose 106, BUN 18, creatinine 1.04 heemoglobin A1c 7.1, white count 4.6 hematocrit 41.8 platelets 238 vitamin D 58, total cholesterol 116 triglycerides 160 HDL 42 LDL 50 ratio 2.8. Questions H ave you had any new onset fever, chills, cough, congestion, sore throat, shortness of breath, muscle aches? N o * ROS: G eneral/Constitutional: pain o nly normal aches and pains. C hills d enies.?Fatigue a dmits. F ever d enies. E NT: Decreased hearing m ild. R [...] mellitus, hypertension, chronic renal dialysis, diagnosed with HTN, DM. S iblings: alive. 2 sister(s) - healthy. [...] Social History: T obacco Use: T obacco Control (Standard) T obacco use: F ormer smoker H ow long has it been since you last smoked??Greater than 10 years A dditional Findings: Tobacco non-user E x-cigarette smoker D rugs/Alcohol: D rugs H ave you used drugs other than those for medical reasons in the past 12 months? N o D rug/Alcohol: A RENEE-C (Standard) D id you have a drink containing alcohol in the past year? N o P oints 0 I nterpretation N egative Cathleen oropeza was born in [place], [place]. 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 He went to school at the [employer] of pharmacy. He is . The patient is active during the winter and has been making an effort to control his calorie intake. He has been advised to avoid recreational food and sugary drinks. * Medications: T akingLosartan Potassium 100 MG Tablet 1 tablet Orally Once a day glipiZIDE ER 10 MG Tablet Extended Release 24 Hour TAKE 1 TABLET BY MOUTH EVERY DAY WITH BREAKFAST metFORMIN HCl 500 MG Tablet TAKE 2 TABLET BY MOUTH TWICE A DAY WITH MEALS 90 Simvastatin 10 MG Tablet TAKE 1 TABLET BY MOUTH EVERY DAY Vitamin D 1000 UNIT Tablet 1 tablet Orally Once a day CoQ-10 Glucosamine 500 MG Capsule 2 capsule with a meal Orally once a day Niacin 500 MG Tablet 1 tablet with food Orally Twice a day Ozempic (1 MG/DOSE) 4 MG/3ML Solution Pen-injector as directed Subcutaneous weekly Medication List reviewed and reconciled with the patientTaking Losartan Potassium 100 MG Tablet 1 tablet Orally Once a day Taking glipiZIDE ER 10 MG Tablet Extended Release 24 Hour TAKE 1 TABLET BY MOUTH EVERY DAY WITH BREAKFAST Taking metFORMIN HCl 500 MG Tablet TAKE 2 TABLET BY MOUTH TWICE A DAY WITH MEALS 90 Taking Simvastatin 10 MG Tablet TAKE 1 [...] MG/3ML Solution Pen-injector as directed Subcutaneous weekly Medication List reviewed and reconciled with the patient * Allergies: N o Known Drug Allergyno[Allergies Verified] Objective: * Vitals: H t: 71, Wt:224, BMI:31.24, BP:137/78, HR:73, Temp:97.6, Wt-k.6. * P ast Orders: Lab:URINE DIP STICK * Collection Date 09/25/2024 05/06/2022 Order Date 09/25/2024 05/06/2022 Result: Normal SG 1.020 (Ref Range: 1.005 - 1.025) 1.025 pH 5.0 (Ref Range: 5.0 - 9.0) 6 JUAN Negative (Ref Range: Negative -) neg NIT Negative (Ref Range: Negative -) neg PRO 100 (Ref Range: Negative - Trace) 8 GLU Negative (Ref Range: Negative -) normal KET 5 (Ref Range: Negative -) neg UBG 0.2 (Ref Range: 0.1 - 1.8) normal TARYN Negative (Ref Range: 0.2 - 1.3) neg BLD + - (Ref Range: Negative -) neg Menstrating NR n/a * Examination: G eneral Examination: GENERAL APPEARANCE: [...] mass, centripital obesity. RECTAL EXAM: n ot examined, Done at colonoscopy within the last 12 months and was negative. MUSCULOSKELETAL: e xtremities unremarkable, no clubbing, cyanosis or edema. PERIPHERAL PULSES: n ormal. NEUROLOGIC: a lert and oriented, cranial nerves 2-12 grossly intact, deep tendon reflexes 2+ symmetrical, motor strength normal upper and lower extremities, sensory exam intact. PSYCH: a lert, oriented. Assessment: * Assessment: 1. T ype 2 diabetes mellitus without complication, unspecified whether halfway insulin use - E11.9 (Primary) N otes :His weight is elevated and his hemoglobin A1c is 8.5. He will continue on the increased dose of Ozempic an attempt to lose 1-2 pounds per week. The A1c will be repeated in 12 weeks. 2 . O besity (BMI 30.0-34.9) - E66.9 N otes :On the current dose of Ozempic he has lost 5 pounds in the last month. This dose was continue without change for the next month. He feels generally healthy and well. 3 . A denomatous polyp - D36.9 N otes :He will have a colonoscopy every 5 years. 4 . B enign prostatic hyperplasia, unspecified whether lower urinary tract symptoms present - N40.0 N otes :He reports rising from sleep usually once a night sometimes twice depending upon fluid intake. We have discussed lifestyle modifications referred back to reduce this nocturia. 5 . M ixed hyperlipidemia - E78.2 N otes :His currentt fasting lipid profile is not available. There was ordered to be done within the next few days. His total cholesterol in April 2024 was 134. No change in his regimen was made. 6 . L eukoplakia of tongue - K13.21 N otes :He sees a dentist regularly. His oral examination was benign today.No leukoplakia was visualized. 7 . C hest pain, unspecified type - R07.9 N otes :He has had no further chest pain since his last visit. 8 . F ormer smoker - Z87.891 N otes :He has a plan to prevent relapse in times of stress and illness. Plan: * Treatment: 2. O thers Continue Losartan Potassium Tablet, 100 [...] TAKE 1 TABLET BY MOUTH EVERY DAY; S tart Ozempic (2 MG/DOSE) Solution Pen-injector, 8 MG/3ML, 2 mg, Subcutaneous, weekly, 28 days, 1 Applicator, Refills 11; S tart amLODIPine Besylate Tablet, 2.5 MG, 1 tablet, Orally, Once a day, 30 days, 30 Tablet, Refills 11. * Labs: * L ab: URINE DIP STICK (Collection Date & Time - 09/25/2024) Value Reference Range S G 1.020 1.005 - 1.025 * p H 5.0 5.0 - 9.0 * L EU Negative Negative - * N IT Negative Negative - * P RO 100 Negative - Trace * G ZOYA Negative Negative - * K ET 5 Negative - * U BG 0.2 0.1 - 1.8 * B IL Negative 0.2 - 1.3 * B LD + - Negative - * Procedure Codes: 8 1002 URINE-NO MICRO * Preventive Medicine: Counseling: C are goal [...] tobacco use and urged to quit. 0 09/25/2024 DM Care Plan: P atient Lifestyle Goals P atient wants to be able to manage diabetes without too much effort. T reatment Goals B lood Sugars less than < 115, HbA1C < 7.0. B arriers n o barriers. S elf-Managment Goals W ork on weight loss, with a goal of losing 1 lb per week. * Follow Up: 4 Months (Reason: ov) * Images: * Sign off status: Completed true * Provider: Chantelle Person MD Date: 0 09/25/2024 Generated for Kirai thee/Joel/eTransmitting on: 1 08/26/2024 02:57 PM EST History and Physical Notes * HPI (History of Present Illness) Category Sub-Category Detail Notes Depression Screening PHQ-9 Little inte rest or pleasure in doing things: Not at all Feeling down, depressed, or hopeless: No t at all Trouble falling or staying asleep, or sl eeping too much: Not at all Feeling tired or having little energy: N ot at all Poor appetite or overeating: Not at all Feeling bad about yourself o r that you are a failure, or have let yourself or your family down: Not at all Trouble concentrating on thi ngs, such as reading the newspaper or watching television: Not at all Moving or speaking so slowly that other people could have noticed; or the opposite, being so fidgety or restless that you have been moving around a lot more than usual: Not at all Thoughts that you would be b brionna off or of hurting yourself in some way: Not at all Total Score: 0 COVID-19 Screening Questions Have you had any [...] lymph no sherri,spleen normal RECTAL EXAM: not examined, Done a t colonoscopy within the last 12 months and was negative PSYCH: alert, oriented ORAL CAVITY: normal, unremarkable
--- OUTSIDE RECORDS SUMMARY | 2024-10-30 06:00 | XMS_ITS ---
Author Organization Demar Person III, MD Address [address] [place] [address] Care Team Providers Care Assayer Helper Name Role Phone Dr. Demar Person III Primary Care Provider Allergies Allergen (clinical drug ingredient) Drug/Non Drug Allergy documented on EMR Reaction Allergy Type Onset Date Status No Known Drug Allergy Unknown Drug Allergy Active Results Component Value Reference Range Notes PROFILE, FASTING (COMPREHENS LANI METABOLIC) Reviewed date:02/16/2025 07:23:43 PM Interpretation: Performing Lab: Notes/Report: REASON FOR VISIT Laboratory review, Benign prostatic hypertrophy, Obesity, Diabetes, Hyperlipidemia Medications Medication SIG (Take, Route, Frequency, Duration) Notes Start Date End Date Status CoQ-10 Active Glucosamine 500 MG 2 capsule with a lizette l Orally once a day Active Ozempic (2 MG/DOSE) 8 MG/3ML 2 mg Subcutaneous weekly 09/25/2024 Act lani amLODIPine Besylate 2.5 MG 1 tablet Orally Once a day 09/25/2024 Active Niacin 500 MG 1 tablet with food O rally Twice a day Active Simvastatin 10 MG TAKE 1 TABLET BY JONA TH EVERY DAY Active Vitamin D 1000 UNIT 1 tablet Orally Once a day Active metFORMIN HCl 500 MG TAKE 2 TABLET BY MO UTH TWICE A DAY WITH MEALS 90 Active Losartan Potassium 100 MG 1 tablet Orally Once a day Active glipiZIDE ER 10 MG TAKE 1 [...] has it been since you last smoked? Tori ter than 10 years Additional Findings: Tobacco non-user Ex-cigaret te smoker Vital Signs Temperature 97.4 degrees Fahrenheit 10/31/19 25 Blood pressure systolic 135 mm Hg 10/31/19 25 Blood pressure diastolic 68 mm Hg 025 Heart Rate 76 /min 10/30/2024 Height 71 in 10/30/2024 Weight 214 lbs 10/30/2024 BMI 29.84 kg/m2 10/30/2024 Encounters Encounter Location Date Provider Diagnosis Demar Person III, MD [address] [place] [address] [place] [address] 10/30/2024 Demar Person Benign prostatic hyperplasia, unspecified whether lower urinary tract symptoms present N40.0 ; Type 2 diabetes mellitus without complication, unspecified whether fpc insulin use E11.9 ; Mixed hyperlipidemia E78.2 ; Former smoker Z87.891 ; 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 We have discussed lifestyle modifications that could control nocturia. 10/30/2024 Type 2 diabetes mellitus without complication, unspecified whether fpc insulin use (ICD-10 - E11.9) He has been compliant with his medications. Comprehensive blood work will be done prior to his next visit. This will include fasting glucose microalbumin and hemoglobin A1c. 10/30/2024 Mixed hyperlipidemia (ICD-10 - E78.2) The most recent fasting lipid profile showed good control of his lipids. 10/30/2024 Former smoker (ICD-1 0 - Z87.891) He has a plan to prevent relapse in times of stress and illness. 10/30/2024 Leukoplakia of tongu e (ICD-10 - K13.21) He sees a dentist regularly. His oral examination was benign today.No leukoplakia was visualized. 10/30/2024 Encounter for screening for malignant neoplasm of colon (ICD-10 - Z12.11) His Cologard test is negative. Plan Of Treatment Medication Medication Name Sig Start Date Stop Date Notes CoQ-10 Glucosamine 500 MG 2 capsule with a lizette l Orally once a day Ozempic (2 MG/DOSE) 8 MG/3ML 2 mg Subcutaneous weekly 09/16 amLODIPine Besylate 2.5 MG 1 tablet Orally Once a day 09/16 Niacin 500 MG 1 tablet with food O rally Twice a day Simvastatin 10 MG TAKE 1 TABLET BY JONA TH EVERY DAY Vitamin D 1000 UNIT 1 tablet Orally Once a day metFORMIN HCl 500 MG TAKE 2 TABLET BY MO UTH TWICE A DAY WITH MEALS 90 Losartan Potassium 100 MG 1 tablet Orally Once a day glipiZIDE ER 10 MG TAKE 1 TABLET BY JONA TH EVERY DAY WITH BREAKFAST Pending Test Test Name Order Date CBC w DIFF 10/30/2024 Glucose Fasting 10/30/2024 Hemoglobin A1c 10/30/2024 Next Appt Details Follow Up: 6 Weeks, Reason: OV Provider Name:Demar Person , 07/04/2025 11:00:00 AM, [address] [place] [address] [address], [place], [address], Provider Name:Demar Person , 10/08/2025 11:00:00 AM, [address] [place] [address] [address], [place], [address], Progress Notes * Sundeep WOODSDOB: [birth year] (74 yo M)Acc No.[id number]:10/30/2024 Progress Notes Patient: Sundeep KNIGHT Provider: Chantelle Person MD :1950 A ge:74 Y S ex:Male Date:10/30/2024 Address:[address] [place] [id number] Subjective: * Chief Complaints: * L aboratory reviewBenign prostatic hypertrophyObesityDiabetesHyperlipidemia * HPI: C OVID-19 Screening: He returns to the office to review recent blood tests and his metabolic syndrome. He is trying to lose weight and consume a healthy diet. He has had no angina or dyspnea. He is trying to consume a healthy diet. His blood work was reviewed with him in detail.His Cologard test is negative. Questions H ave you had any new onset fever, chills, cough, congestion, sore throat, shortness of breath, muscle aches? N o * ROS: G eneral/Constitutional: pain o nly normal aches and pains. C hills d enies.?Fatigue a dmits. F ever d enies. E NT: Decreased hearing d enies. R [...] dditional Findings: Tobacco non-user E x-cigarette smoker Cathleen oropeza was born in [place], [place]. 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 He is . The patient [...] with food Orally Twice a day Ozempic (2 MG/DOSE) 8 MG/3ML Solution Pen-injector 2 mg Subcutaneous weekly , stop date 08/27/2025mLODIPine Besylate 2.5 MG Tablet 1 tablet Orally Once a day Taking Losartan Potassium 100 MG Tablet 1 [...] food Orally Twice a day Taking Ozempic (2 MG/DOSE) 8 MG/3ML Solution Pen-injector 2 mg Subcutaneous weekly , stop date 08/27/2025Taking amLODIPine Besylate 2.5 MG Tablet 1 tablet Orally Once a day DiscontinuedOzempic (1 MG/DOSE) 4 MG/3ML Solution Pen-injector as directed Subcutaneous weekly Medication List reviewed and reconciled with the patientDiscontinued Ozempic (1 MG/DOSE) 4 MG/3ML Solution Pen-injector as directed Subcutaneous weekly Medication List reviewed and reconciled with the patient * Allergies: N o Known Drug Allergyno[Allergies Verified] Objective: * Vitals: H t: 71, Wt:214, BMI:29.84, BP:135/68, HR:76, Temp:97.4, Wt-k.07. * P ast Orders: Lab:URINE DIP STICK * Collection Date 09/25/2024 09/21/2023 05/06/2022 Order Date 09/25/2024 09/21/2023 05/06/2022 Result: Normal SG 1.020 (Ref Range: 1.005 - 1.025) 1.020 (Ref Range: 1.005 - 1.025) 1.025 pH 5.0 (Ref Range: 5.0 - 9.0) 5.0 (Ref Range: 5.0 - 9.0) 6 JUAN Negative (Ref Range: Negative -) Negative (Ref Range: Negative -) neg NIT Negative (Ref Range: Negative -) Negative (Ref Range: Negative -) neg PRO 100 (Ref Range: Negative - Trace) 100 (Ref Range: Negative - Trace) 8 GLU Negative (Ref Range: Negative -) Negative (Ref Range: Negative -) normal KET 5 (Ref Range: Negative -) Negative (Ref Range: Negative -) neg UBG 0.2 (Ref Range: 0.1 - 1.8) 0.2 (Ref Range: 0.1 - 1.8) normal TARYN Negative (Ref Range: 0.2 - 1.3) Negative (Ref Range: 0.2 - 1.3) neg BLD + - (Ref Range: Negative -) Positive (Ref Range: Negative -) neg Menstrating NR N/A n/a ???Lab:Microalbumin, Random (Order Date - 09/07/2024) (Collection Date & Time - 09/22/2024)?Clinical Info: Please fast for 12-14 hours prior tohaving this labwork done. You may have black coffee or tea with no milk or sugar. May have water,Please have this testing 1 week prior to your next appointment,PLEASE FAX COMPLETED RESULTS TO [phone] ???Lab:PROFILE, FASTING (COMPREHENSIVE METABOLIC) (Order Date - 09/07/2024) (Collection Date & Time - 09/22/2024)?Clinical Info: Please fast for 12- 14 hours prior tohaving this labwork done. You may have black coffee or tea with no milk or sugar. May have water,Please have this testing 1 week prior to your next appointment,PLEASE FAX COMPLETED RESULTS TO [phone] ???Lab:Hemoglobin A1c (Order Date - 09/07/2024) (Collection Date & Time - 09/22/2024)?Clinical Info: Please fast for 12-14 hours prior tohaving this labwork done. You may have black coffee or tea with no milk or sugar. May have water,Please have this testing 1 week prior to your next appointment,PLEASE FAX COMPLETED RESULTS TO [phone] ???Lab:PSA, TOTAL (Order Date - 09/07/2024) (Collection Date & Time - 09/22/2024)?Clinical Info: Please fast for 12-14 hours prior tohaving this labwork done. You may have black coffee or tea with no milk or sugar. May have water,Please have this testing 1 week prior to your next appointment,PLEASE FAX COMPLETED RESULTS TO [phone] ???Lab:CBC WITH AUTO DIFF (Order Date - 09/07/2024) (Collection Date & Time - 09/22/2024)?Clinical Info: Please fast for 12-14 hours prior tohaving this labwork done. You may have black coffee or tea with no milk or sugar. May have water,Please have this testing 1 week prior to your next appointment,PLEASE FAX COMPLETED RESULTS TO [phone] ???Lab:Lipid Panel (Order Date - 09/07/2024) (Collection Date & Time - 09/22/2024)?Clinical Info: Please fast for 12-14 hours prior tohaving this labwork done. You may have black coffee or tea with no milk or sugar. May have water,Please have this testing 1 week prior to your next appointment,PLEASE FAX COMPLETED RESULTS TO [phone] ???Lab:Vitamin D 25-OH Total (Order Date - 09/07/2024) (Collection Date & Time - 09/22/2024)?Clinical Info: Please fast for 12-14 hours prior tohaving this labwork done. You may have black coffee or tea with no milk or sugar. May have water,Please have this testing 1 week prior to your next appointment,PLEASE FAX COMPLETED RESULTS TO [phone] * Examination: G eneral Examination: GENERAL APPEARANCE: p leasant, well nourished, well developed, in no acute distress, calm and relaxed, overweight, man. HEAD: a traumatic, normocephalic. EYES: e [...] normal, no ascites, no organomegaly, no mass, overweight. RECTAL EXAM: n ot examined. MUSCULOSKELETAL: e xtremities unremarkable, no clubbing, cyanosis or edema. PERIPHERAL PULSES: n ormal. NEUROLOGIC: a lert and oriented, cranial nerves 2-12 grossly intact, deep tendon reflexes 2+ symmetrical, motor strength normal upper and lower extremities, sensory exam intact. PSYCH: a lert, oriented. Assessment: * Assessment: 1. T ype 2 diabetes mellitus without complication, unspecified whether exterminator insulin use - E11.9 (Primary) N otes :He has been compliant with his medications. Comprehensive blood work will be done prior to his next visit. This will include fasting glucose microalbumin and hemoglobin A1c. 2 . B enign prostatic hyperplasia, unspecified whether lower urinary tract symptoms present - N40.0 N otes :He is experiencing nocturia once a night. We have discussed lifestyle modifications that could control nocturia. 3 . M ixed hyperlipidemia - E78.2 N otes :The most recent fasting lipid profile showed good control of his lipids. 4 . F ormer smoker - Z87.891 N otes :He has a plan to prevent relapse in times of stress and illness. 5 . L eukoplakia of tongue - K13.21 N otes :He sees a dentist regularly. His oral examination was benign today.No leukoplakia was visualized. 6 . E ncounter for screening for malignant neoplasm of colon - Z12.11 ? N otes :His Cologard test is negative. Plan: * Treatment: 2. B enign prostatic hyperplasia, unspecified whether lower urinary tract symptoms present L AB: PROFILE, FASTING (COMPREHENSIVE METABOLIC) L AB: CBC w DIFF L AB: Glucose Fasting L AB: Hemoglobin A1c 3. M ixed hyperlipidemia L AB: PROFILE, FASTING (COMPREHENSIVE METABOLIC) L AB: CBC w DIFF L AB: Glucose Fasting L AB: Hemoglobin A1c 4. O thers Continue Losartan Potassium Tablet, 100 [...] TABLET BY MOUTH EVERY DAY; C ontinue Vitamin D Tablet, 1000 UNIT, 1 tablet, Orally, Once a day; C ontinue CoQ-10; C ontinue Glucosamine Capsule, 500 MG, 2 capsule with a meal, Orally, once a day; C ontinue Niacin Tablet, 500 MG, 1 tablet with food, Orally, Twice a day; C ontinue Ozempic (2 MG/DOSE) Solution Pen-injector, 8 MG/3ML, 2 mg, Subcutaneous, weekly; C ontinue amLODIPine Besylate Tablet, 2.5 MG, 1 tablet, Orally, Once a day. ? * Procedure Codes: * Preventive Medicine: Counseling: C are goal follow-up plan: Counseling for abnormal BMI given Y es Above Normal BMI Follow-up D ietary management education, guidance, and counseling, Dietary needs education S moking/Tobacco Use Patient counseled on the dangers of tobacco use and urged to quit. 0 10/30/2024 DM Care Plan: P atient Lifestyle Goals P atient wants to be able to manage diabetes without too much effort. T reatment Goals B lood Sugars less than < 115, HbA1C < 7.0. B arriers n o barriers. S elf-Managment Goals W ork on weight loss, with a goal of losing 1 lb per week. * Follow Up: 6 Weeks (Reason: OV) * Images: * Sign off status: Completed true * Provider: Chantelle Person MD Date: 0 10/30/2024 Generated for Printi ng/Joel/eTransmitting on: 1 08/26/2024 02:58 PM EST History and Physical Notes * HPI (History of Present Illness) Category Sub-Category Detail Notes COVID-19 Screening Questions Have you had any new onset fever, chills, cough, congestion, sore throat, shortness of breath, muscle aches?: No Examination Category Sub-Category Detail Notes General Examination GENERAL APPEARANCE: pleasant , well nourished, well developed, in no acute distress, calm and relaxed, overweight, man HEAD: atraumatic, normocep halic EYES: eomi, perrla, anicte nikki, conjugate EARS: normal NOSE: septum intact NECK/THYROID: no jugular venous di stention, no carotid bruit, thyroid normal HEART: no clicks, gallops, murmurs, or rubs, regular rhythm, S1, S2 normal, no s3, or vascular bruits LUNGS: clear to auscultatio n ABDOMEN: bowel sounds normal, no ascites, no organomegaly, no mass, overweight NEUROLOGIC: alert and oriented, cranial nerves 2-12 [...]
--- OUTSIDE RECORDS SUMMARY | 2024-12-18 06:00 | XMS_ITS ---
Author Organization Demar Person III, MD Address [address] [place] [address] [place] [address] Care Team Providers Care Glass Bulb Silverer Name Role Phone Dr. Demar Person III Primary Care Provider Allergies Allergen (clinical drug ingredient) Drug/Non Drug Allergy documented on EMR Reaction Allergy Type Onset Date Status No Known Drug Allergy Unknown Drug Allergy Active REASON FOR VISIT BPH, obesity, hyperlipidemia, leukoplakia Medications Medication SIG (Take, Route, Frequency, Duration) Notes Start Date End Date Status amLODIPine Besylate 2.5 MG 1 tablet Orally Once a day 09/25/2024 Active glipiZIDE ER 10 MG TAKE 1 TABLET BY JONA TH EVERY DAY WITH BREAKFAST Active Losartan Potassium 100 MG 1 tablet Orally Once a day Active Ozempic (2 MG/DOSE) 8 MG/3ML 2 mg Subcutaneous weekly 09/25/2024 Act torrey Niacin 500 MG 1 tablet with food O rally Twice a day Active Simvastatin 10 MG TAKE 1 TABLET BY JONA TH EVERY DAY Active metFORMIN HCl 500 MG TAKE 2 TABLET BY MO UTH TWICE A DAY WITH MEALS 90 Active CoQ-10 Active Vitamin D 1000 UNIT 1 tablet Orally Once a day Active Glucosamine 500 MG 2 capsule with a lizette l Orally once a day Active Social History Tobacco Use: Social History [...] non-user Ex-cigaret te smoker Vital Signs Temperature 97.5 degrees Fahrenheit 05/05/20 25 Blood pressure systolic 133 mm Hg 12/19/19 25 Blood pressure diastolic 70 mm Hg 025 Heart Rate 77 /min 12/18/2024 Height 71 in 12/18/2024 Weight 206 lbs 12/18/2024 BMI 28.73 kg/m2 12/18/2024 Encounters Encounter Location Date Provider Diagnosis Demar Person III, MD [address] [place] [address] [place] [address] 12/18/2024 Demar Person Benign prostatic hyperplasia, unspecified whether lower urinary tract symptoms present N40.0 ; Mixed hyperlipidemia E78.2 ; Obesity (BMI 30.0-34.9) E66.9 ; 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 We have discussed lifestyle modifications that could control nocturia. 12/18/2024 Mixed hyperlipidemia (ICD-10 - E78.2) The most recent fasting lipid profile showed good control of his lipids. 12/18/2024 Obesity (BMI 30.0-34.9) (ICD-10 - E66.9) On the current dose of Ozempic he has lost 5 pounds in the last month. This dose was continue without change for the next month. He feels generally healthy and well. 12/18/2024 Leukoplakia of tongu e (ICD-10 - K13.21) He sees a dentist regularly. His oral examination was benign today.No leukoplakia was visualized. 12/18/2024 Type 2 diabetes mellitus without complication, unspecified whether professor of legal studies insulin use (ICD-10 - E11.9) He has been compliant with his medications. Comprehensive blood work will be done prior to his next visit. This will include fasting glucose microalbumin and hemoglobin A1c. 12/18/2024 Former smoker (ICD-1 0 - Z87.891) He has a plan to prevent relapse in times of stress and illness. Plan Of Treatment Medication Medication Name Sig Start Date Stop Date Notes amLODIPine Besylate 2.5 MG 1 tablet Orally Once a day 09/16 glipiZIDE ER 10 MG TAKE 1 TABLET BY JONA TH EVERY DAY WITH BREAKFAST Losartan Potassium 100 MG 1 tablet Orally Once a day Ozempic (2 MG/DOSE) 8 MG/3ML 2 mg Subcutaneous weekly 09/16 Niacin 500 MG 1 tablet with food O rally Twice a day Simvastatin 10 MG TAKE 1 TABLET BY JONA TH EVERY DAY metFORMIN HCl 500 MG TAKE 2 TABLET BY MO UTH TWICE A DAY WITH MEALS 90 CoQ-10 Vitamin D 1000 UNIT 1 tablet Orally Once a day Glucosamine 500 MG 2 capsule with a lizette l Orally once a day Next Appt Details Follow Up: 2 Months, Reason: OV Provider Name:Demar Person , 07/04/2025 11:00:00 AM, [address] [place] [address] [address], [place], [address], Provider Name:Demar Person , 10/08/2025 11:00:00 AM, [address] [place] [address] [address], [place], [address], Progress Notes * Sundeep WOODSDOB: [birth year] (74 yo M)Acc No.[id number]:12/18/2024 Progress Notes Patient: Sundeep KNIGHT Provider: Chantelle Person MD :1950 A ge:74 Y S ex:Male Date:12/18/2024 Address:[address] [place], [place] [id number] Subjective: * Chief Complaints: * B PHObesityHyperlipidemiaLeukoplakia * HPI: C OVID-19 Screening: He returns to the office for management of his medical issues. Blood work that was done December 12, 2024 shows white count 4.1, hematocrit 38.1 platelets 243, glucose 102, BUN 27, creatinine 1.31. His hemoglobin A1c is 6.0. I explained that the hemoglobin A1c Is consistent with good control and a diabetic..Although he has lost 8 pounds since his last visit, his body mass index is still 28. We discussed diet and nutrition at length today.His prostatism is stable with urinating once or twice a night. He is trying to consume a healthy diet. He has had no chest pain. Questions H ave you had any new [...] x-cigarette smoker Cathleen oropeza was born in [place], [place]. 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 He is . The patient is [...] MG/3ML Solution Pen-injector 2 mg Subcutaneous weekly amLODIPine Besylate 2.5 MG Tablet 1 tablet [...] MG/3ML Solution Pen-injector 2 mg Subcutaneous weekly Taking amLODIPine Besylate 2.5 MG Tablet 1 tablet Orally Once a day Medication List reviewed and reconciled with the patient * Allergies: N o Known Drug Allergyno[Allergies Verified] Objective: * Vitals: H t: 71, Wt:206, BMI:28.73, BP:133/70, HR:77, Temp:97.5, Wt-k.44. * P ast Orders: Lab:URINE DIP STICK [...] Negative -) neg Menstrating NR N/A n/a * Examination: G eneral Examination: GENERAL APPEARANCE: p leasant, well nourished, well developed, in no acute distress, calm and relaxed, overweight, man. HEAD: a traumatic, normocephalic. EYES: e petey, perrla, anicteric, conjugate. EARS: n ormal. NOSE: s eptum intact. ORAL CAVITY: n ormal, unremarkable, No leukoplakia seeing.? NECK/THYROID: n o jugular venous distention, no [...] a lert, oriented. Assessment: * Assessment: 1. B enign prostatic hyperplasia, unspecified whether lower urinary tract symptoms present - N40.0 (Primary) N otes :He is experiencing nocturia once a night. We have discussed lifestyle modifications that could control nocturia. 2 . M ixed hyperlipidemia - E78.2 N otes :The most recent fasting lipid profile showed good control of his lipids. 3 . O besity (BMI 30.0-34.9) - E66.9 N otes :On the current dose of Ozempic he has lost 5 pounds in the last month. This dose was continue without change for the next month. He feels generally healthy and well. 4 . L eukoplakia of tongue - K13.21 N otes :He sees a dentist regularly. His oral examination was benign today.No leukoplakia was visualized. 5 . T ype 2 diabetes mellitus without complication, unspecified whether professor of legal studies insulin use - E11.9 N otes :He has been compliant with his medications. Comprehensive blood work will be done prior to his next visit. This will include fasting glucose microalbumin and hemoglobin A1c. 6 . F ormer smoker - Z87.891 N otes :He has a plan to prevent relapse in times of stress and illness. Plan: * Treatment: * Procedure Codes: * Preventive Medicine: DM Care Plan: P atient Lifestyle Goals P atient wants to be able to manage diabetes without too much effort. T reatment Goals B lood Sugars less than < 115, HbA1C < 7. B arriers n o barriers. S elf-Managment Goals W ork on weight loss, with a goal of losing 1 lb per week. * Follow Up: 2 Months (Reason: OV) * Images: * Sign off status: Completed true * Provider: Chantelle Person MD Date: 0 12/18/2024 Generated for Kirai thee/Joel/eTransmitting on: 1 08/26/2024 [...] alert, oriented ORAL CAVITY: normal, unremarkable , No leukoplakia seeing
--- OUTSIDE RECORDS SUMMARY | 2025-02-14 06:00 | XMS_ITS ---
Author Organization Demar Person III, MD Address [address] [place] [address] [place] [address] Care Team Providers Care Medical Accounts Receivable Specialist Name Role Phone Dr. Demar Person III Primary Care Provider Allergies Allergen (clinical drug ingredient) Drug/Non Drug Allergy documented on EMR Reaction Allergy Type Onset Date Status No Known Drug Allergy Unknown Drug Allergy Active Reason For Referral Reason diabetic eye exam Diagnosis 1 Type 2 diabetes boy itus without complication, unspecified whether moth exterminator insulin use (E11.9) Referral Organization Demar Person III, MD Referring Provider First Name Demar Referring Provider Last Name Raza Referring Provider Speciality Internal M edicine Referred Provider Specialty Ophthalmolog y General Notes Lima Carlson CMA 02/14 11:35:44 AM >patient stated to me he goes to [facility] for eye exams and he did not want our office to make the appointment he will make appointment and call our office with date and time of his appointment, Lima Carlson CMA 05/03/2025 11:23:56 AM > patient went to [facility] in [place] and had his diabetic eye exam and they will be faxing the progress note to us Referral Priority Routine REASON FOR VISIT Benign prostatic hypertrophy, Hyperlipidemia, Obesity, Diabetes, History of oral leukoplakia Medications Medication SIG (Take, Route, Frequency, Duration) Notes Start Date End Date Status Simvastatin 10 MG TAKE 1 TABLET BY JONA TH EVERY DAY Active metFORMIN HCl 500 MG TAKE 2 TABLET BY MO UTH TWICE A DAY WITH MEALS 90 Active glipiZIDE ER 10 MG TAKE 1 TABLET BY JONA TH EVERY DAY WITH BREAKFAST Active Losartan Potassium 100 MG 1 tablet Orally Once a day Active amLODIPine Besylate 2.5 MG 1 tablet Orally Once a day 09/25/2024 Active Ozempic (2 MG/DOSE) 8 MG/3ML 2 mg Subcutaneous weekly 09/25/2024 Act torrey Niacin 500 MG 1 tablet with food O rally Twice a day Active Glucosamine 500 MG 2 capsule with a lizette l Orally once a day Active CoQ-10 Active Vitamin D 1000 UNIT 1 tablet Orally Once a day Active Social History Tobacco Use: [...] Additional Findings: Tobacco non-user Ex-cigaret te smoker Problems Problem Type SNOMED Code ICD Code Onset Dates Problem Status W/U Status Risk Notes Problem [id number] Overweight (BMI 25.0-29.9) (E66.3) Active confirmed He is no longer obese. His body mass index is 27. I've encouraged him to continue with the weight loss strategy. Vital Signs Temperature 98.1 degrees Fahrenheit 02/15/20 25 Blood pressure systolic 125 mm Hg 02/15/20 25 Blood pressure diastolic 63 mm Hg 025 Heart Rate 78 /min 02/14/2025 Height 71 in 02/14/2025 Weight 193 lbs 02/14/2025 BMI 26.92 kg/m2 02/14/2025 Encounters Encounter Location Date Provider Diagnosis Demar Person III, MD [address] [place] [address] [place] [address] 02/14/2025 Demar Person Overweight (BMI 25.0-29.9) E66.3 ; Benign prostatic hyperplasia, unspecified whether lower urinary tract symptoms present N40.0 ; Mixed hyperlipidemia E78.2 ; Former smoker Z87.891 ; Type 2 diabetes mellitus without complication, unspecified whether moth exterminator insulin use E11.9 ; 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 His body mass index is 26.9. I've encouraged him to continue with the weight loss strategy. 02/14/2025 Benign prostatic hyperplasia, unspecified whether lower urinary tract symptoms present (ICD-10 - N40.0) He is experiencing nocturia once a night. We have discussed lifestyle modifications that could control nocturia. 02/14/2025 Mixed hyperlipidemia (ICD-10 - E78.2) The most recent fasting lipid profile showed good control of his lipids. 02/14/2025 Former smoker (ICD-1 0 - Z87.891) He has a plan to prevent relapse in times of stress and illness. 02/14/2025 Type 2 diabetes mellitus without complication, unspecified whether moth exterminator insulin use (ICD-10 - E11.9) He has been compliant with his medications. Comprehensive blood work will be done prior to his next visit. His current hemoglobin A1c is 6.0. 02/14/2025 Leukoplakia of tongu e (ICD-10 - K13.21) He sees a dentist regularly. His oral examination was benign today.No leukoplakia was visualized. 02/14/2025 Vitamin D deficiency , unspecified (ICD-10 - E55.9) He was continued on vitamin D supplements. Plan Of Treatment Medication Medication Name Sig Start Date Stop Date Notes Simvastatin 10 MG TAKE 1 TABLET BY JONA TH EVERY DAY metFORMIN HCl 500 MG TAKE 2 TABLET BY MO UTH TWICE A DAY WITH MEALS 90 glipiZIDE ER 10 MG TAKE 1 TABLET BY JONA TH EVERY DAY WITH BREAKFAST Losartan Potassium 100 MG 1 tablet Orally Once a day amLODIPine Besylate 2.5 MG 1 tablet Orally Once a day 09/16 Ozempic (2 MG/DOSE) 8 MG/3ML 2 mg Subcutaneous weekly 09/16 Niacin 500 MG 1 tablet with food O rally Twice a day Glucosamine 500 MG 2 capsule with a lizette l Orally once a day CoQ-10 Vitamin D 1000 UNIT 1 tablet Orally Once a day Referrals Referral Date Details 02/14/2025 02/14/2025, diabetic eye exam Next Appt Details Follow Up: 2 Months, Reason: weight check Provider Name:Demar Person , 07/04/2025 11:00:00 AM, [address] [place] [address] , [place] [address], [place], [address], Provider Name:Demar Person , 10/08/2025 11:00:00 AM, [address] [place] [address] [address], [place], [address], Progress Notes * Sundeep WOODSDOB: [birth year] (74 yo M)Acc No.[id number]:02/14/2025 Progress Notes Patient: Sundeep KNIGHT Provider: Chantelle Person MD :1950 A ge:74 Y S ex:Male Date:02/14/2025 Address:[address] [place], [place] [id number] Subjective: * Chief Complaints: * B enign prostatic hypertrophyHyperlipidemiaObesityDiabetesHistory of oral leukoplakia * HPI: C OVID-19 Screening: He returns to the office for a periodic scheduled visit to manage his medical problems including diabetes. He is to provide annual diabetic ophthalmological examination. We have referred him for this purpose. He has had no chest pain or dyspnea. He feels generally healthy and well. He is trying to lose weight. He is rising from sleep once or twice a night to urinate. We have discussed lifestyle modifications he could make to reduce his nocturia. He is not smoking. He has been compliant with all of his medications. 100 work that was done December 12, 2024 showed white count 4.1 hematocrit 38.1 platelets 243 glucose 102 BUN 27 creatinine 1.31 hemoglobin A1c 6.0. He has lost 13 pounds through diet and exercise since his last visit. We discussed the impact upon his hemoglobin A1c at length. Questions H ave you had any new [...] enies. D iarrhea d enies. H eartburn o ccasional. N ausea d enies. R ectal bleeding [...] x-cigarette smoker Cathleen oropeza was born in [place], [place]. 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 He went to school at the [employer]. He is . The patient is [...] Verified] Objective: * Vitals: H t: 71, Wt:193, BMI:26.92, BP:125/63, HR:78, Temp:98.1, Wt-k.54. * Examination: G eneral Examination: GENERAL APPEARANCE: p leasant, well nourished, well developed, in no acute distress, calm and relaxed, overweight, man. HEAD: a traumatic, normocephalic. EYES: e petey, perrla, anicteric, conjugate. EARS: n ormal. NOSE: s eptum intact. ORAL CAVITY: n ormal, unremarkable, Leukoplakia was not identified. NECK/THYROID: n o jugular venous distention, no [...] a lert, oriented. Assessment: * Assessment: 1. O verweight (BMI 25.0-29.9) - E66.3 (Primary) N otes :He is no longer obese. His body mass index is 26.9. I've encouraged him to continue with the weight loss strategy. 2 . B enign prostatic hyperplasia, unspecified [...] times of stress and illness. 5 . T ype 2 diabetes mellitus without complication, unspecified whether fdc insulin use - E11.9 N otes :He has been compliant with his medications. Comprehensive blood work will be done prior to his next visit. His current hemoglobin A1c is 6.0. 6 . L eukoplakia of tongue - K13.21 N otes :He sees a dentist regularly. His oral examination was benign today.No leukoplakia was visualized. 7 . V itamin D deficiency, unspecified - E55.9 N otes :He was continued on vitamin D supplements. Plan: * Treatment: 2. O thers Continue [...] Follow-up D ietary management education, guidance, and counseling S moking/Tobacco Use Patient counseled on the dangers of tobacco use and urged to quit. 0 02/14/2025 DM Care Plan: P atient Lifestyle Goals P atient wants to be able to manage diabetes without too much effort. T reatment Goals B lood Sugars less than < 115, HbA1C < 7.0. B arriers n o barriers. S elf-Managment Goals W ork on weight loss, with a goal of losing 1 lb per week. * Follow Up: 2 Months (Reason: weight check) * Images: * Sign off status: Completed true * Provider: Chantelle Person MD Date: 0 02/14/2025 Generated for Ene kingston/Joel/Aria on: 08/26/2024 02:56 PM EST History and [...] alert, oriented ORAL CAVITY: normal, unremarkable , Leukoplakia was not identified Consultation Request Notes Referral Date Referring Provider Referred Provider Not 02/14/2025 Demar Person , diabetic eye [address]
--- OUTSIDE RECORDS SUMMARY | 2025-04-18 06:00 | XMS_ITS ---
Author Organization Demar Person III, MD Address [address] [place] [address] [place] [address] Care Team Providers Care Pipe Changer Name Role Phone Dr. Demar Person III Primary Care Provider Allergies Allergen (clinical drug ingredient) Drug/Non Drug Allergy documented on EMR Reaction Allergy Type Onset Date Status No Known Drug Allergy Unknown Drug Allergy Active REASON FOR VISIT Benign prostatic hypertrophy, Hyperlipidemia, Obesity, Diabetes, Leukoplakia Medications Medication SIG (Take, Route, Frequency, Duration) Notes Start Date End Date Status Niacin 500 MG 1 tablet with food O rally Twice a day Active Glucosamine 500 MG 2 capsule with a lizette l Orally once a day Active CoQ-10 Active amLODIPine Besylate 2.5 MG 1 tablet Orally Once a day 09/25/2024 Active Ozempic (2 MG/DOSE) 8 MG/3ML 2 mg Subcutaneous weekly 09/25/2024 Act torrey Vitamin D 1000 UNIT 1 tablet Orally [...] non-user Ex-cigaret te smoker Vital Signs Temperature 97.9 degrees Fahrenheit 04/18/20 25 Blood pressure systolic 143 mm Hg 04/18/20 25 Blood pressure diastolic 76 mm Hg 025 Heart Rate 71 /min 04/18/2025 Height 71 in 04/18/2025 Weight 197 lbs 04/18/2025 BMI 27.47 kg/m2 04/18/2025 Encounters Encounter Location Date Provider Diagnosis Demar Person III, MD [address] [place] [address] [address], [place] [address] 04/18/2025 Demar Person Former smoker Z87.89 1 ; Type 2 diabetes mellitus without complication, unspecified whether detention insulin use E11.9 ; 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 04/18/2025 Type 2 diabetes mellitus without complication, unspecified whether termite exterminator insulin use (ICD-10 - E11.9) He has been compliant with his medications. Comprehensive blood work will be done prior to his next visit. His current hemoglobin A1c is 6.0. 04/18/2025 Leukoplakia of tongu e (ICD-10 - K13.21) He sees a dentist regularly. His oral examination was benign today.No leukoplakia was visualized. 04/18/2025 Mixed hyperlipidemia (ICD-10 - E78.2) The most recent fasting lipid profile showed good control of his lipids. 04/18/2025 Benign prostatic hyperplasia, unspecified whether lower urinary tract symptoms present (ICD-10 - N40.0) He is experiencing nocturia once a night. We have discussed lifestyle modifications that could control nocturia. 04/18/2025 Overweight (BMI 25.0-29.9) (ICD-10 - E66.3) He is no longer obese. His body mass index is 27. I've encouraged him to continue with the weight loss strategy. Plan Of Treatment Medication Medication Name Sig Start Date Stop Date Notes Niacin 500 MG 1 tablet with food O rally Twice a day Glucosamine 500 MG 2 capsule with a lizette l Orally once a day CoQ-10 amLODIPine Besylate 2.5 MG 1 tablet Orally Once a day 09/16 Ozempic (2 MG/DOSE) 8 MG/3ML 2 mg Subcutaneous weekly 09/16 Vitamin D 1000 UNIT 1 tablet Orally Once a day Simvastatin 10 MG TAKE 1 TABLET BY JONA TH EVERY DAY metFORMIN HCl 500 MG TAKE 2 TABLET BY MO UTH TWICE A DAY WITH MEALS 90 glipiZIDE ER 10 MG TAKE 1 TABLET BY JONA TH EVERY DAY WITH BREAKFAST Losartan Potassium 100 MG 1 tablet Orally Once a day Next Appt Details Follow Up: 2 Months, Reason: OV Provider Name:Demar Person , 07/04/2025 11:00:00 AM, [address] [place] [address] [address], [place], [address], Provider Name:Demar Person , 10/08/2025 11:00:00 AM, [address] [place] [address] [address], [place], [address], Progress Notes * Sundeep WOODSDOB: [birth year] (74 yo M)Acc No.[id number]:04/18/2025 Progress Notes Patient: Maxine LIONSundeep Provider: Chantelle Person MD :1950 A ge:74 Y S ex:Male Date:04/18/2025 Address:[address] [place], [place] [id number] Subjective: * Chief Complaints: * B enign prostatic hypertrophyHyperlipidemiaObesityDiabetesLeukoplakia * HPI: C OVID-19 Screening: He returns for a scheduled visit for medical management. His prostatism is control with one episode per night. He has had no chest pain or shortness of breath. He has not noticed any oral lesions. There is no dysphagia. He has been compliant with all of his medications.Comprehensive blood work is not available today but has been ordered to be done in the near future. Questions H ave you had any new [...] x-cigarette smoker Cathleen oropeza was born in [place], [place]. 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 He is . The patient is [...] Verified] Objective: * Vitals: H t: 71, Wt:197, BMI:27.47, BP:143/76, HR:71, Temp:97.9, Wt-k.36. * Examination: G eneral Examination: GENERAL APPEARANCE: p leasant, well nourished, well developed, in no acute distress, calm and relaxed: overweight: man. HEAD: a traumatic, normocephalic. EYES: e [...] sounds normal, no ascites, no organomegaly, no mass: overweight. RECTAL EXAM: n ot examined. MUSCULOSKELETAL: e xtremities unremarkable, no clubbing, cyanosis or edema. PERIPHERAL PULSES: n ormal. NEUROLOGIC: a lert and oriented, cranial nerves 2-12 grossly intact, deep tendon reflexes 2+ symmetrical, motor strength normal upper and lower extremities, sensory exam intact. PSYCH: a lert, oriented. Assessment: * Assessment: 1. T ype 2 diabetes mellitus without complication, unspecified whether detention insulin use - E11.9 (Primary) N otes :He has been compliant with his medications. Comprehensive blood work will be done prior to his next visit. His current hemoglobin A1c is 6.0. 2 . F ormer smoker - Z87.891 N otes :He has a plan to prevent relapse in times of stress and illness. 3 . L eukoplakia of tongue - K13.21 N otes :He sees a dentist regularly. His oral examination was benign today.No leukoplakia was visualized. 4 . M ixed hyperlipidemia - E78.2 N otes :The most recent fasting lipid profile showed good control of his lipids. 5 . B enign prostatic hyperplasia, unspecified whether lower urinary tract symptoms present - N40.0 N otes :He is experiencing nocturia once a night. We have discussed lifestyle modifications that could control nocturia. 6 . O verweight (BMI 25.0-29.9) - E66.3 N otes :He is no longer obese. His body mass index is 27. I've encouraged him to continue with the weight loss strategy. Plan: * Treatment: * Procedure Codes: * Preventive Medicine: Counseling: C are goal follow-up plan: Counseling for abnormal BMI given Y es Above Normal BMI Follow-up D ietary management education, guidance, and counseling S moking/Tobacco Use Patient counseled on the dangers of tobacco use and urged to quit. 0 04/18/2025 DM Care Plan: P atient Lifestyle Goals [...] * Provider: Chantelle Person MD Date: 0 04/18/2025 Generated for Ene kingston/Joel/eTransmitting on: 1 08/26/2024 02:57 PM EST History and Physical Notes * HPI (History of Present Illness) Category Sub-Category Detail Notes COVID-19 Screening Questions Have you had any new onset fever, chills, cough, congestion, sore throat, shortness of breath, muscle aches?: No Examination Category Sub-Category Detail Notes General Examination GENERAL APPEARANCE: pleasant , well nourished, well developed, in no acute distress, calm and relaxed: overweight: man HEAD: atraumatic, normocep halic EYES: eomi, perrla, anicte nikki, conjugate EARS: normal NOSE: septum intact NECK/THYROID: no jugular venous di stention, no carotid bruit, thyroid normal HEART: no clicks, gallops, murmurs, or rubs, regular rhythm, S1, S2 normal, no s3, or vascular bruits LUNGS: clear to auscultatio n ABDOMEN: bowel sounds normal, no ascites, no organomegaly, no mass: overweight NEUROLOGIC: alert and oriented, cranial nerves [...]
--- OUTSIDE RECORDS SUMMARY | 2025-06-13 06:00 | XMS_ITS ---
Author Organization Demar Person III, MD Address [address] [place] [address] Care Team Providers Care Oil Pipe Inspector Helper Name Role Phone Dr. Demar Person III Primary Care Provider Allergies Allergen (clinical drug ingredient) Drug/Non Drug Allergy documented on EMR Reaction Allergy Type Onset Date Status No Known Drug Allergy Unknown Drug Allergy Active REASON FOR VISIT Diabetes, Benign prosthetic hypertrophy, Overweight, Hyperlipidemia, Leukoplakia, Vitamin D deficiency Medications Medication SIG (Take, Route, Frequency, Duration) Notes Start Date End Date Status Niacin 500 MG 1 tablet with food O rally Twice a day Active Glucosamine 500 MG 2 capsule with a lizette l Orally once a day Active amLODIPine Besylate 2.5 MG 1 tablet Orally Once a day 09/25/2024 Active Ozempic (2 MG/DOSE) 8 MG/3ML 2 mg Subcutaneous weekly 09/25/2024 Act torrey CoQ-10 Active Losartan Potassium 100 MG 1 tablet Orally Once a day Active Simvastatin 10 MG TAKE 1 TABLET BY JONA TH EVERY DAY Active metFORMIN HCl 500 MG TAKE 2 TABLET BY MO UTH TWICE A DAY WITH MEALS 90 Active glipiZIDE ER 10 MG TAKE 1 TABLET BY JONA TH EVERY DAY WITH BREAKFAST Active Vitamin D 1000 UNIT 1 tablet [...] non-user Ex-cigaret te smoker Vital Signs Temperature 97.2 degrees Fahrenheit 06/13/20 25 Blood pressure systolic 129 mm Hg 06/13/20 25 Blood pressure diastolic 77 mm Hg 025 Heart Rate 66 /min 06/13/2025 Height 71 in 06/13/2025 Weight 192 lbs 06/13/2025 BMI 26.78 kg/m2 06/13/2025 Encounters Encounter Location Date Provider Diagnosis Demar Person III, MD [address] [place] [address] [place] [address] 06/13/2025 Demar Person Former smoker Z87.89 1 ; Overweight (BMI 25.0-29.9) E66.3 ; Vitamin D deficiency, unspecified E55.9 ; 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 06/13/2025 Overweight (BMI 25.0-29.9) (ICD-10 - E66.3) He is no longer obese. His body mass index is 27. I've encouraged him to continue with the weight loss strategy. 06/13/2025 Vitamin D deficiency, unspecified (ICD-10 - E55.9) He was continued on vitamin D supplements. 06/13/2025 Leukoplakia of tongue (ICD-10 - K13.21) He sees a dentist regularly. His oral examination was benign today.No leukoplakia was visualized. 06/13/2025 Type 2 diabetes mellitus without complication, unspecified whether assisted insulin use (ICD-10 - E11.9) He has been compliant with his medications. Comprehensive blood work will be done prior to his next visit. His current hemoglobin A1c is 6.0. Plan Of Treatment Medication Medication Name Sig Start Date Stop Date Notes Niacin 500 MG 1 tablet with food O rally Twice a day Glucosamine 500 MG 2 capsule with a lizette l Orally once a day amLODIPine Besylate 2.5 MG 1 tablet Orally Once a day 09/16 Ozempic (2 MG/DOSE) 8 MG/3ML 2 mg Subcutaneous weekly 09/16 CoQ-10 Losartan Potassium 100 MG 1 tablet Orally Once a day Simvastatin 10 MG TAKE 1 TABLET BY JONA TH EVERY DAY metFORMIN HCl 500 MG TAKE 2 TABLET BY MO UTH TWICE A DAY WITH MEALS 90 glipiZIDE ER 10 MG TAKE 1 TABLET BY JONA TH EVERY DAY WITH BREAKFAST Vitamin D 1000 UNIT 1 tablet Orally Once a day Next Appt Details Follow Up: As Scheduled, [place] son: Annual Exam Provider Name:Demar Oropeza Raza , 07/04/2025 11:00:00 AM, [address] [place] [address] [address], [place], [phone], Provider Name:Demar Oropeza Raza , 10/08/2025 11:00:00 AM, [address] [place] [address] [address], [place], [address], Progress Notes * Sundeep WOODSDOB: 2 (74 yo M)Acc No.[id number]:06/13/2025 Progress Notes Patient: Maxine LIONSundeep Provider: Chantelle Person MD :1950 A ge:74 Y S ex:Male Date:06/13/2025 Address:[address] [place], [place] [id number] Subjective: * Chief Complaints: * D iabetesBenign prosthetic hypertrophyOverweightHyperlipidemiaLeukoplakiaVitamin D deficiency * HPI: C OVID-19 Screening: He returns for medical management of numerous issues. He continues his efforts at weight loss and consumption of a diabetic diet. He has been rising from sleep once or twice a night to urinate. We have reviewed lifestyle modifications he could make to reduce this. He has had no chest pain. His diabetes has been controlled. He is compliant with all of his medications. He has had no new oral lesions. He is up-to-date with his dentist. In April 2025 he had his routine diabetic ophthalmology visit. Questions H ave you had any new [...] x-cigarette smoker Cathleen oropeza was born in [place], [place]. 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 He went to school at the [employer] pharmacy. He is . The patient [...] MOUTH TWICE A DAY WITH MEALS 90 Vitamin D 1000 UNIT Tablet 1 tablet Orally Once a day CoQ-10 Glucosamine 500 MG Capsule 2 capsule with a meal Orally once a day Niacin 500 MG Tablet 1 tablet with food Orally Twice a day Ozempic (2 MG/DOSE) 8 MG/3ML Solution Pen-injector 2 mg Subcutaneous weekly amLODIPine Besylate 2.5 MG Tablet 1 tablet Orally Once a day Simvastatin 10 MG Tablet TAKE 1 TABLET BY MOUTH EVERY DAY Medication List reviewed and reconciled with the patientTaking Losartan Potassium 100 MG Tablet 1 tablet Orally Once a day Taking glipiZIDE ER 10 MG Tablet Extended Release 24 Hour TAKE 1 TABLET BY MOUTH EVERY DAY WITH BREAKFAST Taking metFORMIN HCl 500 MG Tablet TAKE 2 TABLET BY MOUTH TWICE A DAY WITH MEALS 90 Taking Vitamin D 1000 UNIT Tablet 1 [...] TAKE 1 TABLET BY MOUTH EVERY DAY Medication List reviewed and reconciled with the patient * Allergies: N o Known Drug Allergyno[Allergies Verified] Objective: * Vitals: H t: 71, Wt:192, BMI:26.78, BP:129/77, HR:66, Temp:97.2, Wt-k.09. * P ast Orders: Imaging:Diabetic Eye Exam * Performed Date 05/03/2025 Order Date 05/03/2025 02/26/2022 Result: undefined * Examination: G eneral Examination: GENERAL APPEARANCE: p leasant, well nourished, well developed, in no acute distress, calm and relaxed: overweight: man. HEAD: a traumatic, normocephalic. EYES: e petey, perrla, anicteric, conjugate. EARS: n ormal. NOSE: s eptum intact. ORAL CAVITY: n ormal, unremarkable, No sign of neoplasm or leukoplakia. NECK/THYROID: n o jugular venous distention, [...] a lert, oriented. Assessment: * Assessment: 1. F ormer smoker - Z87.891 (Primary) N otes :He has a plan to prevent relapse in times of stress and illness. 2 . O verweight (BMI 25.0-29.9) - E66.3 N otes :He is no longer obese. His body mass index is 27. I've encouraged him to continue with the weight loss strategy. 3 . V itamin D deficiency, unspecified - E55.9 N otes :He was continued on vitamin D supplements. 4 . L eukoplakia of tongue - K13.21 N otes :He sees a dentist regularly. His oral examination was benign today.No leukoplakia was visualized. 5 . T ype 2 diabetes mellitus without complication, unspecified whether assisted insulin use - E11.9 N otes :He has been compliant with his medications. Comprehensive blood work will be done prior to his next visit. His current hemoglobin A1c is 6.0. Plan: * Treatment: * Procedure Codes: * Preventive Medicine: Counseling: C are goal follow-up plan: Counseling for abnormal BMI given Y es Above Normal BMI Follow-up D ietary management education, guidance, and counseling S moking/Tobacco Use Patient counseled on the dangers of tobacco use and urged to quit. 1 DM Care Plan: P atient Lifestyle Goals P atient wants to be able to manage diabetes without too much effort. T reatment Goals H bA1C < 7.0, Blood Sugars less than < 115. B arriers n o barriers. S elf-Managment Goals W ork on weight loss, with a goal of losing 1 lb per week, Increase exercise to 3 times a week for 30 mins. * Follow Up: A s Scheduled (Reason: Annual Exam) * Images: * Sign off status: Completed true * Provider: Chantelle Person MD Date: 1 Generated for Printi ng/Leighg/eTransmitting on: 08/26/2024 02:57 PM EST History and [...] oriented ORAL CAVITY: normal, unremarkable , No sign of neoplasm or leukoplakia
--- OUTSIDE RECORDS SUMMARY | 2025-06-26 06:30 | XMS_ITS ---
Author Organization Demar Person III, MD Address [address] [place] [address] [place] [address] Care Team Providers Care Biofuels Processing Technician Name Role Phone Dr. Demar Person III Primary Care Provider Allergies Allergen (clinical drug ingredient) Drug/Non Drug Allergy documented on EMR Reaction Allergy Type Onset Date Status No Known Drug Allergy Unknown Drug Allergy Active REASON FOR VISIT Infected abrasion right guadarrama, Diabetes, Leukoplakia, Benign prostatic hypertrophy Medications Medication SIG (Take, Route, Frequency, Duration) Notes Start Date End Date Status CoQ-10 Active Vitamin D 1000 UNIT 1 tablet Orally Once a day Active metFORMIN HCl 500 MG TAKE 2 TABLET BY MO UTH TWICE A DAY WITH MEALS 90 Active Losartan Potassium 100 MG 1 tablet Orall y Once a day Active glipiZIDE ER 10 MG TAKE 1 TABLET BY JONA TH EVERY DAY WITH BREAKFAST Active amLODIPine Besylate 2.5 MG 1 tablet Orally Once a day 09/25/2024 Active Ozempic (2 MG/DOSE) 8 MG/3ML 2 mg Subcutaneous weekly 09/25/2024 Act torrey Niacin 500 MG 1 tablet with food O rally Twice a day Active Simvastatin 10 MG TAKE 1 TABLET BY JONA TH EVERY DAY Active Cephalexin 500 MG 1 capsule Orally marianna ry 6 hrs for 10 days 06/26/2025 07/06/2025 Active Glucosamine 500 MG 2 capsule with [...] Problem Status W/U Status Risk Notes Problem [id number] Cutaneous abscess of right lower limb (L02.415) Active confirmed A few drops of bloody pus were expressed and sent for culture. The area was bandaged. He was instructed to wash it with soap and water once a day and otherwise to keep it dry. He was given cephalexin 500 mg 4 times a day for 10 days. A follow-up visit was arranged. The pain is minimal and he has afebrile and his heart rate is normal Vital Signs Temperature 97.3 degrees Fahrenheit 06/26/20 25 Blood pressure systolic 126 mm Hg 06/26/20 25 Blood pressure diastolic 64 mm Hg 025 Heart Rate 85 /min 06/26/2025 Height 71 in 06/26/2025 Weight 194 lbs 06/26/2025 BMI 27.05 kg/m2 06/26/2025 Encounters Encounter Location Date Provider Diagnosis Demar Person III, MD [address] [place] [address] [place] [address] 06/26/2025 Demar Person Cutaneous abscess of right lower limb L02.415 ; Benign prostatic hyperplasia, unspecified whether lower urinary tract symptoms present N40.0 ; Mixed hyperlipidemia E78.2 ; Former smoker Z87.891 and Overweight (BMI 25.0-29.9) E66.3 Assessments Encounter Date Diagnosis (ICD Code) Assessment Notes Treat ment Notes Treatment Clinical Notes 06/26/2025 Cutaneous abscess of right lower limb (ICD-10 - L02.415) A few drops of bloody pus were expressed and sent for culture. The area was bandaged. He was instructed to wash it with soap and water once a day and otherwise to keep it dry. He was given cephalexin 500 mg 4 times a day for 10 days. A follow-up visit was arranged. The pain is minimal and he has afebrile and his heart rate is normal 06/26/2025 Benign prostatic hyperplasia, unspecified whether lower urinary tract symptoms present (ICD-10 - N40.0) He is experiencing nocturia once a night. We have discussed lifestyle modifications that could control nocturia. 06/26/2025 Mixed hyperlipidemia (ICD-10 - E78.2) The most recent fasting lipid profile showed good control of his lipids. 06/26/2025 Former smoker (ICD-1 0 - Z87.891) He has a plan to prevent relapse in times of stress and illness. 06/26/2025 Overweight (BMI 25.0-29.9) (ICD-10 - E66.3) He is no longer obese. His body mass index is 27. I've encouraged him to continue with the weight loss strategy. Plan Of Treatment Medication Medication Name Sig Start Date Stop Date Notes CoQ-10 Vitamin D 1000 UNIT 1 tablet Orally Once a day metFORMIN HCl 500 MG TAKE 2 TABLET BY MO UTH TWICE A DAY WITH MEALS 90 Losartan Potassium 100 MG 1 tablet Orally Once a day glipiZIDE ER 10 MG TAKE 1 TABLET BY JONA TH EVERY DAY WITH BREAKFAST amLODIPine Besylate 2.5 MG 1 tablet Orally Once a day 09/16 Ozempic (2 MG/DOSE) 8 MG/3ML 2 mg Subcutaneous weekly 09/16 Niacin 500 MG 1 tablet with food O rally Twice a day Simvastatin 10 MG TAKE 1 TABLET BY JONA TH EVERY DAY Cephalexin 500 MG 1 capsule Orally marianna ry 6 hrs for 10 days 06/26/2025 07/06/2025 Glucosamine 500 MG 2 capsule with a lizette l Orally once a day Pending Test Test Name Order Date Routine Culture 06/26/2025 Next Appt Details Follow Up: 1 Week, Reason: o v Provider Name:Demar Person , 07/04/2025 11:00:00 AM, [address] [place] [address] [address], [place], [address], Provider Name:Demar Person , 10/08/2025 11:00:00 AM, [address] [place] [address] [address], [place], [address], Progress Notes * Sundeep WOODSDOB: [birth year] (74 yo M)Acc No.[id number]:06/26/2025 Patient: Sundeep KNIGHT Provider: Chantelle Person MD :1950 A ge:74 Y S ex:Male Date:06/26/2025 Address:[address] [place] [address] [place], [id number] Subjective: * Chief Complaints: * I nfected abrasion right shinDiabetesLeukoplakiaBenign prostatic hypertrophy * HPI: C OVID-19 Screening: . He tripped over a wooden garden platform outdoors and fell to the ground abrading the skin of his right guadarrama 6 days ago. He presents today with several large scabs in that area surrounded by erythema with palpable fluid underneath one of the scabs consistent with an abscess. A small amount of bloody pus was expressed and sent for culture. He was begun on cephalexin 500 mg daily for 10 days. A follow-up appointment in 1 week was arranged. A follow-up telephone call in 72 hours was arranged. It was a simple trip not loss of consciousness and he seems well today. Questions H ave you had any new onset fever, chills, cough, congestion, sore throat, shortness of breath, muscle aches? N o * ROS: G eneral/Constitutional: pain R ight leg below the knee. C hills d enies.?Fatigue a dmits. F ever d enies. E NT: Decreased hearing d enies. R espiratory: Cough d enies. C ardiovascular: Chest pain with exertion d enies. D yspnea on exertion?denies. S hortness of breath d enies. G astrointestinal: Constipation d enies. D ecreased appetite d enies.?Diarrhea d enies. H eartburn o ccasional. N [...] enies. R ravin d enies. S kin lesion(s)?Infected abrasion with scabs right anterior guadarrama. N eurologic: Difficulty speaking d enies. D [...] x-cigarette smoker Cathleen oropeza was born in [place], [place]. 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 of pharmacy. He is . The patient is active during the winter and has been making an effort to control his calorie intake. He has been advised to avoid recreational food and sugary drinks. * Medications: T akingSimvastatin 10 MG Tablet TAKE 1 TABLET BY MOUTH EVERY DAY Losartan Potassium 100 MG Tablet 1 tablet [...] 1 TABLET BY MOUTH EVERY DAY Taking Losartan Potassium 100 MG Tablet 1 [...] Verified] Objective: * Vitals: H t: 71, Wt:194, BMI:27.05, BP:126/64, HR:85, Temp:97.3, Wt-k. * Examination: G eneral Examination: GENERAL APPEARANCE: [...] sounds normal, no ascites, no organomegaly, no mass. RECTAL EXAM: n ot examined. MUSCULOSKELETAL: 5 scabs and a cluster anterior right guadarrama surrounded by erythema with palpable fluid underneath. PERIPHERAL PULSES: n ormal. NEUROLOGIC: a lert and oriented, cranial nerves 2-12 grossly intact, deep tendon reflexes 2+ symmetrical, motor strength normal upper and lower extremities, sensory exam intact. PSYCH: a lert, oriented. Assessment: * Assessment: 1. C utaneous abscess of right lower limb - L02.415 (Primary) N otes :A few drops of bloody pus were expressed and sent for culture. The area was bandaged. He was instructed to wash it with soap and water once a day and otherwise to keep it dry. He was given cephalexin 500 mg 4 times a day for 10 days. A follow-up visit was arranged. The pain is minimal and he has afebrile and his heart rate is normal 2 . B enign prostatic hyperplasia, unspecified [...] times of stress and illness. 5 . O verweight (BMI 25.0-29.9) - E66.3 N otes :He is no longer obese. His body mass index is 27. I've encouraged him to continue with the weight loss strategy. Plan: * Treatment: 2. O thers Continue Simvastatin Tablet, 10 MG, TAKE 1 TABLET BY MOUTH EVERY DAY; C ontinue Losartan Potassium Tablet, 100 MG, 1 tablet, Orally, Once a day; C ontinue glipiZIDE ER Tablet Extended Release 24 Hour, 10 MG, TAKE 1 TABLET BY MOUTH EVERY DAY WITH BREAKFAST; C ontinue metFORMIN HCl Tablet, 500 MG, TAKE 2 TABLET BY MOUTH TWICE A DAY WITH MEALS 90; C ontinue Vitamin D Tablet, 1000 UNIT, [...] 2.5 MG, 1 tablet, Orally, Once a day; S tart Cephalexin Capsule, 500 MG, 1 capsule, Orally, every 6 hrs, 10 days, 40, Refills 0. * Procedure Codes: * Preventive Medicine: Counseling: C are goal follow-up plan: Counseling for abnormal BMI given Y es Above Normal BMI Follow-up D ietary management education, guidance, and counseling S moking/Tobacco Use Patient counseled on the dangers of tobacco use and urged to quit. 08/26/2024 * Follow Up: 1 Week (Reason: ov) * Images: * Sign off status: Completed true * Provider: Chantelle Person MD Date: 08/26/2024 Generated for Printi ng/Faxing/eTransmitting on: 08/26/2024 02:57 PM EST History and [...] sounds normal, no ascites, no organomegaly, no mass NEUROLOGIC: alert and oriented, cranial nerves 2-12 grossly intact, deep tendon reflexes 2+ symmetrical, motor strength normal upper and lower extremities, sensory exam intact SKIN: no suspicious lesion s, anicteric PERIPHERAL PULSES: normal BREASTS: no masses palpable b ilaterally MUSCULOSKELETAL: 5 scabs and a cluste r anterior right guadarrama surrounded by erythema with palpable fluid underneath LYMPH NODES: no enlarged lymph no sherri,spleen normal RECTAL EXAM: not examined PSYCH: alert, oriented ORAL CAVITY: normal, unremarkable
--- OUTSIDE RECORDS SUMMARY | 2025-06-26 14:57 | XMS_ITS | Patient Health Record ---
Author Organization [facility] Address [address] [place] [phone] Care Team Providers Care Ehr Trainer Name Role Phone Jaya Mc Primary Care Provider Demar Yang [phone] Reason For Referral No Information Plan Of Treatment No Information
--- OUTSIDE RECORDS SUMMARY | 2025-06-26 14:57 | XMS_ITS | Patient Health Record ---
Author Organization Demar Person III, MD Address [address] [place] [address] [place] [facility] [address] Care Team Providers Care Concrete Laborer Name Role Phone Dr. Demar Person III [...] date:09/22/2024 10:08:41 AM Interpretation: Performing Lab: Notes/Report: URINE DIP STICK Reviewed date:09/25/2024 11:13:53 AM Interpretation: Performing Lab: Notes/Report: SG 1.020 1.005 - 1.025 pH 5.0 5.0 - 9.0 JUAN Negative Negative - NIT Negative Negative - PRO 100 Negative - Trace GLU Negative Negative - KET 5 Negative - UBG 0.2 0.1 - 1.8 TARYN Negative 0.2 - 1.3 BLD + - Negative - PROFILE, FASTING (COMPREHENS LANI METABOLIC) Reviewed date:02/16/2025 07:23:43 PM Interpretation: Performing Lab: Notes/Report: Diabetic Eye Exam Reviewed date:05/08/2025 01:37:24 PM Interpretation:undefined Performing Lab: Notes/Report: undefined Reason For Referral Reason diabetic eye exam Diagnosis 1 Type 2 diabetes boy itus without complication, unspecified whether equipment operator intermodal yard insulin use (E11.9) Referral Organization Demar Person III, MD Referring Provider First Name Demar Referring Provider Last Name Raza Referring Provider Speciality Internal M edicine Referred Provider Specialty Ophthalmolog y General Notes Lima Carlson ELIEZER 02/14 11:35:44 AM >patient stated to me he goes to [facility] optical dept for eye exams and he did not want our office to make the appointment he will make appointment and call our office with date and time of his appointment, Lima Carlson ELIEZER 05/03/2025 11:23:56 AM > patient went to [facility] in [place] and had his diabetic eye exam and they will be faxing the progress note to us Referral Priority Routine Medications Medication SIG (Take, Route, Frequency, Duration) Notes Start Date End Date Status Glucosamine 500 MG 2 capsule with a [...] 2 mg Subcutaneous weekly 09/25/2024 Act lani Niacin 500 MG 1 tablet with food O rally Twice a day Active Losartan Potassium 100 MG 1 tablet Orall y Once a day Active Simvastatin 10 MG TAKE 1 TABLET BY JONA TH EVERY DAY Active glipiZIDE ER 10 MG TAKE 1 TABLET BY JONA TH EVERY DAY WITH BREAKFAST Active Cephalexin 500 MG 1 capsule Orally marianna ry 6 hrs for 10 days 06/26/2025 07/06/2025 Active Immunizations Vaccine Route Administration Date Status Comme nts COVID- 19 Vaccine Unknown 10/26/2020 Administered COVID- 19 Vaccine Unknown 11/23/2020 Administered COVID- 19 Vaccine Unknown 11/12/2021 Administered Tdap Unknown 06/07/2018 Administered Influenza, quad Unknown 04/07/2016 Administered Influenza no Preserv 3 and > Unknown 06/01/2017 Adminis tered Influenza, quad Unknown 05/24/2018 Administered Influenza, quad Unknown 05/10/2019 Administered Influenza, quad Unknown 05/12/2021 Administered Influenza, quad Unknown 04/24/2020 Administered COVID- 19 Vaccine Unknown 06/10/2021 Administered FLuzone HD PF Unknown 04/17/2022 Administered COVID PFIZER Unknown 11/12/2021 Administered COVID- 19 Vaccine Unknown 04/28/2022 Administered RSV-IGIV Unknown 04/22/2023 Administered Influenza, quad Unknown 04/22/2023 Administered Comirnaty Pfizer COVID-19 12+ Unknown 06/04/2023 Admini stered Comirnaty Pfizer COVID-19 12+ Unknown 04/14/2024 Admini stered RSV Adjuvant Unknown 04/22/2023 Administered COVID PFIZER Unknown 06/10/2021 Administered COVID Pfizer Bivalent Unknown 04/28/2022 Administered COVID Pfizer Bivalent Unknown 12/23/2022 Administered Fluzone High-Dose (HD-IIV3) Unknown 05/24/2018 Administ ered Fluzone High-Dose (HD-IIV3) Unknown 05/10/2019 Administ ered Influenza-iiv4 p-free high dose Unknown 05/12/2021 Admi nistered Fluzone High-Dose (HD-IIV3) Unknown 04/14/2024 Administ ered Tdap Unknown 05/08/2023 Administered PCV 21 Unknown 11/17/2024 Administered Social History Tobacco Use: Social History Observation [...] ast year? No Points 0 Interpretation Negative Problems Problem Type SNOMED Code ICD Code Onset Dates Problem Status W/U Status Risk Notes Problem [id number] Former smoker (Z87.891) Active confirmed He has a plan to prevent relapse in times of stress and illness. Problem 333818650 Overweight (BMI 25.0-29.9) (E66.3) Active confirmed He is no longer obese. His body mass index is 27. I've encouraged him to continue with the weight loss strategy. Problem Vitamin D deficiency (60189169) Vitamin D deficiency, unspecified (E55.9) Active confirmed He was continued on vitamin D supplements. Problem [id number] Mixed hyperlipid emia (E78.2) Active confirmed The most recent fasting lipid profile showed good control of his lipids. Problem 456376292 Cutaneous absces s of right lower limb (L02.415) Active confirmed [...] afebrile and his heart rate is normal Problem 024169463 Hypertriglycerid emia (E78.1) Active confirmed He has gained weight. I recommended aggressive weight loss with a diet low in animal fat. We discussed at length the dietary sources of triglycerides. He will avoid them as much as possible. Problem Chest pain (67835564) Chest pain, unspecified type (R07.9) Active confirmed He has had no further chest pain since his last visit. Problem Benign prostatic hypertrophy without outflow obstruction (069244832) Benign prostatic hyperplasia, unspecified whether lower urinary tract symptoms present (N40.0) Active confirmed He is experiencing nocturia once a night. We have discussed lifestyle modifications that could control nocturia. Problem Type II diabetes mellitus without complication (313309114) Type 2 diabetes mellitus without complication, unspecified whether retirement insulin use (E11.9) Active confirmed He has been compliant with his medications. Comprehensive blood work will be done prior to his next visit. His current hemoglobin A1c is 6.0. Problem 023208601 Adenomatous poly p (D36.9) Active confirmed He will have a colonoscopy every 5 years. 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 His oral examination was benign today.No leukoplakia was visualized. Vital Signs Heart Rate 85 /min 06/26/2025 Temperature 97.3 degrees Fahrenheit 06/26/2025 Blood pressure diastolic 64 mm Hg 06/26/2025 Height 71 in 06/26/2025 Blood pressure systolic 126 mm Hg 06/26/2025 Weight 194 lbs 06/26/2025 BMI 27.05 kg/m2 06/26/2025 Encounters Encounter Location Date Provider Diagnosis Demar Person III, MD [address] [place] [address] [place] [id number] 2024 Demar Person Obesity (BMI 30.0-34 .9) E66.9 ; Type 2 diabetes mellitus without complication, unspecified whether retirement insulin use E11.9 ; Benign prostatic hyperplasia, unspecified whether lower urinary tract symptoms present N40.0 ; Mixed hyperlipidemia E78.2 ; Leukoplakia of tongue K13.21 and Former smoker Z87.891 Demar Person III, MD [address] [place] [address] [place] [id number] 08/04/2024 Demar Person Obesity (BMI 30.0-34 .9) E66.9 ; Type 2 diabetes mellitus without complication, unspecified whether equipment operator intermodal yard insulin use E11.9 ; Benign prostatic hyperplasia, unspecified whether lower urinary tract symptoms present N40.0 ; Mixed hyperlipidemia E78.2 ; Leukoplakia of tongue K13.21 and Former smoker Z87.891 Demar Person III, MD [address] [place] [address] [place] [id number] 09/07/2024 Demar Person Obesity (BMI 30.0-34 .9) E66.9 ; Type 2 diabetes mellitus without complication, unspecified whether equipment operator intermodal yard insulin use E11.9 ; Benign prostatic hyperplasia, unspecified whether lower urinary tract symptoms present N40.0 ; Mixed hyperlipidemia E78.2 ; Vitamin D deficiency, unspecified E55.9 and Former smoker Z87.891 Demar Person III, MD [address] [place] [address] [place] [id number] 09/25/2024 Demar Person Obesity (BMI 30.0-34 .9) E66.9 ; Type 2 diabetes mellitus without complication, unspecified whether equipment operator intermodal yard insulin use E11.9 ; Adenomatous polyp D36.9 ; Benign prostatic hyperplasia, unspecified whether lower urinary tract symptoms present N40.0 ; Mixed hyperlipidemia E78.2 ; Leukoplakia of tongue K13.21 ; Chest pain, unspecified type R07.9 and Former smoker Z87.891 Demar Person III, MD [address] [place] [address] [place] [id number] 10/30/2024 Demar Person Benign prostatic hyperplasia, unspecified whether lower urinary tract symptoms present N40.0 ; Type 2 diabetes mellitus without complication, unspecified whether retirement insulin use E11.9 ; Mixed hyperlipidemia E78.2 ; Former smoker Z87.891 ; Leukoplakia of tongue K13.21 and Encounter for screening for malignant neoplasm of colon Z12.11 Demar Person III, MD [address] [place] [address] [place] [id number] 12/18/2024 Demar Person Benign prostatic hyperplasia, unspecified whether lower urinary tract symptoms present N40.0 ; Mixed hyperlipidemia E78.2 ; Obesity (BMI 30.0-34.9) E66.9 ; Leukoplakia of tongue K13.21 ; Type 2 diabetes mellitus without complication, unspecified whether equipment operator intermodal yard insulin use E11.9 and Former smoker Z87.891 Demar Person III, MD [address] [place] [address] [place] [id number] 02/14/2025 Demar Person Overweight (BMI 25.0-29.9) E66.3 ; Benign prostatic hyperplasia, unspecified whether lower urinary tract symptoms present N40.0 ; Mixed hyperlipidemia E78.2 ; Former smoker Z87.891 ; Type 2 diabetes mellitus without complication, unspecified whether equipment operator intermodal yard insulin use E11.9 ; Leukoplakia of tongue K13.21 and Vitamin D deficiency, unspecified E55.9 Demar Person III, MD [address] [place] [address] [place] [phone] 04/18/2025 Demar Person Former smoker Z87.89 1 ; Type 2 diabetes mellitus without complication, unspecified whether equipment operator intermodal yard insulin use E11.9 ; Leukoplakia of tongue K13.21 ; Mixed hyperlipidemia E78.2 ; Benign prostatic hyperplasia, unspecified whether lower urinary tract symptoms present N40.0 and Overweight (BMI 25.0-29.9) E66.3 Demar Person III, MD [address] [place] [address] [place] [id number] 06/13/2025 Demar Person Former smoker Z87.89 1 ; Overweight (BMI 25.0-29.9) E66.3 ; Vitamin D deficiency, unspecified E55.9 ; Leukoplakia of tongue K13.21 and Type 2 diabetes mellitus without complication, unspecified whether retirement insulin use E11.9 Demar Person III, MD [address] [place] [address] [address] [place] [address] 06/26/2025 Demar Person Cutaneous abscess of right lower limb L02.415 ; Benign prostatic hyperplasia, unspecified whether lower urinary tract symptoms present N40.0 ; Mixed hyperlipidemia E78.2 ; Former smoker Z87.891 and Overweight (BMI 25.0-29.9) E66.3 Demar Person III, MD [address] [place] [address] [address] [place] [address] 08/21/2024 Demar Person Assessments Encounter Date Diagnosis (ICD Code) Assessment Notes Treat ment Notes Treatment Clinical Notes 2024 Obesity (BMI 30.0-34.9) (ICD-10 - E66.9) After an initial weight loss he has gained weight. I have increased the dose of Ozempic. We have reviewed his weight loss strategy. 2024 Type 2 diabetes mellitus without complication, unspecified whether equipment operator intermodal yard insulin use (ICD-10 - E11.9) He reports his glucose levels are under 1:30. His fasting glucose was 128. I have ordered a hemoglobin A1c to be done for his next visit with a microalbumin. 08/04/2024 Obesity (BMI 30.0-34.9) (ICD-10 - E66.9) After an initial weight loss he has gained weight. I have increased the dose of Ozempic. We have reviewed his weight loss strategy. 08/04/2024 Type 2 diabetes mellitus without complication, unspecified whether retirement insulin use (ICD-10 - E11.9) He reports his glucose levels are under 1:30. His fasting glucose was 128. I have ordered a hemoglobin A1c to be done for his next visit with a microalbumin. 09/07/2024 Obesity (BMI 30.0-34.9) (ICD-10 - E66.9) On the current dose of Ozempic he has lost 5 pounds in the last month. This dose was continue without change for the next month. He feels generally healthy and well. 09/07/2024 Type 2 diabetes mellitus without complication, unspecified whether equipment operator intermodal yard insulin use (ICD-10 - E11.9) His weight is elevated and his hemoglobin A1c is 8.5. He will continue on the increased dose of Ozempic an attempt to lose 1-2 pounds per week. The A1c will be repeated in 12 weeks. 09/25/2024 Obesity (BMI 30.0-34.9) (ICD-10 - E66.9) On the current dose of Ozempic he has lost 5 pounds in the last month. This dose was continue without change for the next month. He feels generally healthy and well. 09/25/2024 Type 2 diabetes mellitus without complication, unspecified whether equipment operator intermodal yard insulin use (ICD-10 - E11.9) His weight is elevated and his hemoglobin A1c is 8.5. He will continue on the increased dose of Ozempic an attempt to lose 1-2 pounds per week. The A1c will be repeated in 12 weeks. 10/30/2024 Benign prostatic hyperplasia, unspecified whether lower urinary tract symptoms present (ICD-10 - N40.0) He is experiencing nocturia once a night. We have discussed lifestyle modifications that could control nocturia. 10/30/2024 Type 2 diabetes mellitus without complication, unspecified whether retirement insulin use (ICD-10 - E11.9) He has been compliant with his medications. Comprehensive blood work will be done prior to his next visit. This will include fasting glucose microalbumin and hemoglobin A1c. 12/18/2024 Mixed hyperlipidemia (ICD-10 - E78.2) The most recent fasting lipid profile showed good control of his lipids. 12/18/2024 Benign prostatic hyperplasia, unspecified whether lower urinary tract symptoms present (ICD-10 - N40.0) He is experiencing nocturia once a night. We have discussed lifestyle modifications that could control nocturia. 02/14/2025 Overweight (BMI 25.0-29.9) (ICD-10 - E66.3) He is no longer obese. His body mass index is 26.9. I've encouraged him to continue with the weight loss strategy. 02/14/2025 Benign prostatic hyperplasia, unspecified whether lower urinary tract symptoms present (ICD-10 - N40.0) He is experiencing nocturia once a night. We have discussed lifestyle modifications that could control nocturia. 04/18/2025 Former smoker (ICD-1 0 - Z87.891) He has a plan to prevent relapse in times of stress and illness. 04/18/2025 Type 2 diabetes mellitus without complication, unspecified whether equipment operator intermodal yard insulin use (ICD-10 - E11.9) He has been compliant with his medications. Comprehensive blood work will be done prior to his next visit. His current hemoglobin A1c is 6.0. 06/13/2025 Former smoker (ICD-1 0 - Z87.891) He has a plan to prevent relapse in times of stress and illness. 06/13/2025 Overweight (BMI 25.0-29.9) (ICD-10 - E66.3) He is no longer obese. His body mass index is 27. I've encouraged him to continue with the weight loss strategy. 06/26/2025 Cutaneous abscess of right lower limb [...] discussed lifestyle modifications that could control nocturia. 2024 Benign prostatic hyperplasia, unspecified whether lower urinary tract symptoms present (ICD-10 - N40.0) He rises from sleep once or twice a night to urinate depending upon fluid intake. We discussed lifestyle modification as a way to reduce nocturia. 08/04/2024 Benign prostatic hyperplasia, unspecified whether lower urinary tract symptoms present (ICD-10 - N40.0) He rises from sleep once or twice a night to urinate depending upon fluid intake. We discussed lifestyle modification as a way to reduce nocturia. 09/07/2024 Benign prostatic hyperplasia, unspecified whether lower urinary tract symptoms present (ICD-10 - N40.0) He reports rising from sleep usually once a night sometimes twice depending upon fluid intake. We have discussed lifestyle modifications referred back to reduce this nocturia. 09/25/2024 Adenomatous polyp (ICD-10 - D36.9) He will have a colonoscopy every 5 years. 10/30/2024 Mixed hyperlipidemia (ICD-10 - E78.2) The most recent fasting lipid profile showed good control of his lipids. 12/18/2024 Obesity (BMI 30.0-34.9) (ICD-10 - E66.9) On the current dose of Ozempic he has lost 5 pounds in the last month. This dose was continue without change for the next month. He feels generally healthy and well. 02/14/2025 Mixed hyperlipidemia (ICD-10 - E78.2) The most recent fasting lipid profile showed good control of his lipids. 04/18/2025 Leukoplakia of tongu e (ICD-10 - K13.21) He sees a dentist regularly. His oral examination was benign today.No leukoplakia was visualized. 06/13/2025 Vitamin D deficiency , unspecified (ICD-10 - E55.9) He was continued on vitamin D supplements. 06/26/2025 Mixed hyperlipidemia (ICD-10 - E78.2) The most recent fasting lipid profile showed good control of his lipids. 2024 Mixed hyperlipidemia (ICD-10 - E78.2) His lipids are stable and in their target range. No change in his regimen was necessary today. 08/04/2024 Mixed hyperlipidemia (ICD-10 - E78.2) His lipids are stable and in their target range. No change in his regimen was necessary today. 09/07/2024 Mixed hyperlipidemia (ICD-10 - E78.2) His currentt fasting lipid profile is not available. There was ordered to be done within the next few days. His total cholesterol in April 2024 was 134. No change in his regimen was made. 09/25/2024 Benign prostatic hyperplasia, unspecified whether lower urinary tract symptoms present (ICD-10 - N40.0) He reports rising from sleep usually once a night sometimes twice depending upon fluid intake. We have discussed lifestyle modifications referred back to reduce this nocturia. 10/30/2024 Former smoker (ICD-1 0 - Z87.891) He has a plan to prevent relapse in times of stress and illness. 12/18/2024 Leukoplakia of panchito oropeza (ICD-10 - K13.21) He sees a dentist regularly. His oral examination was benign today.No leukoplakia was visualized. 02/14/2025 Former smoker (ICD-1 0 - Z87.891) He has a plan to prevent relapse in times of stress and illness. 04/18/2025 Mixed hyperlipidemia (ICD-10 - E78.2) The most recent fasting lipid profile showed good control of his lipids. 06/13/2025 Leukoplakia of panchito oropeza (ICD-10 - K13.21) He sees a dentist regularly. His oral examination was benign today.No leukoplakia was visualized. 06/26/2025 Former smoker (ICD-1 0 - Z87.891) He has a plan to prevent relapse in times of stress and illness. 2024 Leukoplakia of panchito oropeza (ICD-10 - K13.21) He sees a dentist regularly. His oral examination was benign today.No leukoplakia was visualized. 08/04/2024 Leukoplakia of panchito oropeza (ICD-10 - K13.21) He sees a dentist regularly. His oral examination was benign today.No leukoplakia was visualized. 09/07/2024 Vitamin D deficiency , unspecified (ICD-10 - E55.9) He was continued on vitamin D supplements. 09/25/2024 Mixed hyperlipidemia (ICD-10 - E78.2) His currentt fasting lipid profile is not available. There was ordered to be done within the next few days. His total cholesterol in April 2024 was 134. No change in his regimen was made. 10/30/2024 Leukoplakia of panchito oropeza (ICD-10 - K13.21) He sees a dentist regularly. His oral examination was benign today.No leukoplakia was visualized. 12/18/2024 Type 2 diabetes mellitus without complication, unspecified whether equipment operator intermodal yard insulin use (ICD-10 - E11.9) He has been compliant with his medications. Comprehensive blood work will be done prior to his next visit. This will include fasting glucose microalbumin and hemoglobin A1c. 02/14/2025 Type 2 diabetes mellitus without complication, unspecified whether retirement insulin use (ICD-10 - E11.9) He has been compliant with his medications. Comprehensive blood work will be done prior to his next visit. His current hemoglobin A1c is 6.0. 04/18/2025 Benign prostatic hyperplasia, unspecified whether lower urinary tract symptoms present (ICD-10 - N40.0) He is experiencing nocturia once a night. We have discussed lifestyle modifications that could control nocturia. 06/13/2025 Type 2 diabetes mellitus without complication, unspecified whether retirement insulin use (ICD-10 - E11.9) He has been compliant with his medications. Comprehensive blood work will be done prior to his next visit. His current hemoglobin A1c is 6.0. 06/26/2025 Overweight (BMI 25.0-29.9) (ICD-10 - E66.3) He is no longer obese. His body mass index is 27. I've encouraged him to continue with the weight loss strategy. 2024 Former smoker (ICD-1 0 - Z87.891) He has a plan to prevent relapse in times of stress and illness. 08/04/2024 Former smoker (ICD-1 0 - Z87.891) He has a plan to prevent relapse in times of stress and illness. 09/07/2024 Former smoker (ICD-1 0 - Z87.891) He has a plan to prevent relapse in times of stress and illness. 09/25/2024 Leukoplakia of tongu e (ICD-10 - K13.21) He sees a dentist regularly. His oral examination was benign today.No leukoplakia was visualized. 10/30/2024 Encounter for screening for malignant neoplasm of colon (ICD-10 - Z12.11) His Cologard test is negative. 12/18/2024 Former smoker (ICD-1 0 - Z87.891) He has a plan to prevent relapse in times of stress and illness. 02/14/2025 Leukoplakia of tongu e (ICD-10 - K13.21) He sees a dentist regularly. His oral examination was benign today.No leukoplakia was visualized. 04/18/2025 Overweight (BMI 25.0-29.9) (ICD-10 - E66.3) He is no longer obese. His body mass index is 27. I've encouraged him to continue with the weight loss strategy. 09/25/2024 Chest pain, unspecified type (ICD-10 - R07.9) He has had no further chest pain since his last visit. 02/14/2025 Vitamin D deficiency , unspecified (ICD-10 - E55.9) He was continued on vitamin D supplements. 09/25/2024 Former smoker (ICD-1 0 - Z87.891) He has a plan to prevent relapse in times of stress and illness. Plan Of Treatment Pending Test Test Name Order Date PROFILE, FASTING (COMPREHENSIVE METABOLI C) 11/27/2019 PROFILE, FASTING (COMPREHENSIVE METABOLI C) 05/06/2022 PROFILE, FASTING (COMPREHENSIVE METABOLI C) 01/20/2024 PROFILE, FASTING (COMPREHENSIVE METABOLI C) 07/28/2019 PROFILE, FASTING (COMPREHENSIVE METABOLI C) 11/03/2021 PROFILE, FASTING (COMPREHENSIVE METABOLI C) 04/03/2021 PROFILE, FASTING (COMPREHENSIVE METABOLI C) 09/21/2023 PROFILE, FASTING (COMPREHENSIVE METABOLI C) 07/29/2020 PROFILE, FASTING (COMPREHENSIVE METABOLI C) 12/17/2022 PROFILE, FASTING (COMPREHENSIVE METABOLI C) 03/28/2020 PROFILE, FASTING (COMPREHENSIVE METABOLI C) 09/04/2022 PROFILE, FASTING (COMPREHENSIVE METABOLI C) 11/28/2020 HEMOGLOBIN A1C (GLYCOHEMOGLOBIN) 020 HEMOGLOBIN A1C (GLYCOHEMOGLOBIN) 023 HEMOGLOBIN A1C (GLYCOHEMOGLOBIN) 023 HEMOGLOBIN A1C (GLYCOHEMOGLOBIN) 021 HEMOGLOBIN A1C (GLYCOHEMOGLOBIN) 020 HEMOGLOBIN A1C (GLYCOHEMOGLOBIN) 019 LIPID PANEL 03/28/2020 LIPID PANEL 07/29/2020 LIPID PANEL 12/17/2022 LIPID PANEL 09/04/2022 LIPID PANEL 11/28/2020 LIPID PANEL 05/06/2022 LIPID PANEL 08/05/2021 LIPID PANEL 11/27/2019 LIPID PANEL 07/28/2019 LIPID PANEL 11/03/2021 PSA, TOTAL 03/28/2020 PSA, TOTAL 07/29/2020 PSA, TOTAL 12/17/2022 PSA, TOTAL 01/20/2024 PSA, TOTAL 04/03/2021 PSA, TOTAL SCREEN 05/06/2022 MICROALBUMIN, RANDOM 09/04/2022 MICROALBUMIN, RANDOM 07/29/2020 CBC w DIFF 11/03/2021 CBC w DIFF 04/03/2021 CBC w DIFF 12/04/2021 CBC w DIFF 03/28/2020 CBC w DIFF 11/28/2020 CBC w DIFF 12/17/2022 CBC w DIFF 09/04/2022 CBC w DIFF 10/30/2024 CBC w DIFF 11/27/2019 CBC w DIFF 05/06/2022 CBC w DIFF 07/29/2020 CBC w DIFF 07/28/2019 XR CHEST 2 VIEW PA & LAT 12/04/2021 Stress Test 03/27/2019 VITAMIN D 25-OH TOTAL 03/28/2020 CBC WITH AUTO DIFF 09/21/2023 CBC WITH AUTO DIFF 01/20/2024 Glucose Fasting 10/30/2024 Lipid Panel 09/21/2023 Lipid Panel 04/03/2021 Lipid Panel 01/20/2024 Vitamin D 25-OH Total 01/20/2024 Microalbumin, Random 01/20/2024 Routine Culture 06/26/2025 Hemoglobin A1c 10/30/2024 Hemoglobin A1c 01/20/2024 Next Appt Details Provider Name:Demar Person , 07/04/2025 11:00:00 AM, [address] [place] [address] CHARLIE AREVALO, [place], [phone], Provider Name:Demar Person , 10/08/2025 11:00:00 AM, [address] [place] [address] CHARLIE AREVALO, Y[place]F [place], [phone], Insurance Providers Payer Name Payer Address Payer Phone Subscriber Number Group Number Insured Name Patient Relationship to Insured Coverage Start Date Coverage End Date [employer] Medicare [address] [place] [phone] [id number] [place]deep [place] Self - patient is the insured 2 MEDICARE NGS [address] [place] [phone] [id number] Sundeep [place] Self - patient is the insured Medical (General) History Medical History History ICD Code Tubular adenoma D36.9 Diabetes mellitus E11.9 Hypertriglyceridemia E78.1 Hyperlipidemia E78.5 Hypertension I10 obesity microalbuminuria refuses colonoscopy in favor of cologuar d The patient has a history of diabetes and is currently on Ozempic for management. Surgical History Surgery Date(Month/Year) No history right lateral tongue 1 cm Leukoplakia cryptorchidism surgery, age [age] Hospitalization History Reason Date(Month/Year) No history
== END 2025-06-26 13:17 | disposition home or self-care (01) ==
LOC: HO.LNP 13:16
PROVIDERS: Visit Provider Internal Medicine Medical Oncology
DX: L02.415 Cutaneous abscess of right lower limb (principal)
CPT/HCPCS: 87070; 87205